=== PATIENT | female | born 1985 | race Caucasian/White ===

== ENCOUNTER 2017-10-07 12:57 | Emergency (ER) | payer OTHER, SELFPAY | END 2017-10-07 15:22 | disposition home or self-care (01) | PROVIDERS: Emergency Provider Nurse Practitioner; Family Provider Emergency Medicine; Visit Provider Nurse Practitioner | DX: J06.9 Acute upper respiratory infection, unspecified (principal); M62.838 Other muscle spasm; F17.210 Nicotine dependence, cigarettes, uncomplicated | CPT/HCPCS: 81003; 81025; 96372; 99202 ==

== ENCOUNTER 2017-11-30 16:30 | Outpatient (RCR) | payer MEDICAID, SELFPAY ==
--- NOTE | 2017-11-21 11:54 | HMH.PTOPEV ---
Rehab Outpatient Evaluation Rehab OP Evaluation Start: 11/21/17 11:40 Freq: Status: Active Protocol: Document 11/21/17 11:40 GA (Rec: 11/21/17 11:54 GA [id number]) Electronically Signed By David Lamb, PT 11/21/17 11:40 Outpatient Therapy Subjective History Subjective History Pt reports h/o chronic LBP beginning ~2-3 yrs ago, with exacerbation of s/s ~1 month previous. Pt reports R sided LBP, localized, w/o radicular s/s currently. Pt reports recent NSAID meds have improved pain level. Chief Complaint Pain Spasms Stiff Symptom Type Ache Dull Burning Symptoms Relieved By Heat OTC Meds Prescription Meds Symptoms Aggravated By Standing Physical Activity Walking Prior Functional Limitations None Current Functional Limitations Housework Standing Walking Symptom Description Constant but Variable Level of pain today (0-10) 2 Pain scale - at its best (0-10) 1 Pain scale - at its worst (0-10) 5 Lumbopelvic Eval Posture Thoracic Spine Posture Standing Position Neutral Lumbar Spine Posture Standing Position Neutral Assistive device Assistive Devices None / NA Gait Observation General Gait Pattern Observation No Deviations/Normal Palapation tenderness left paraspinal tenderness Yes: 1/4 Lumbar/Sacral Palpation Findings Tenderness right lumbar spinal tenderness Yes: 3/4 paraspinal tenderness Yes: 3/4 buttock tenderness Yes: 3/4 Lumbar/Sacral Palpation Findings Tenderness Muscle Guarding Accessory Movement L3 right L4 right L5 right Range of Motion Lumbar Spine Active Flexion Range of 0-100 Motion (degrees) Lumbar Spine Active Extension Range of 0-40 Motion (degrees) Left Lumbar Spine Lateral Flexion Active 0-40 Range of Motion (degrees) Right Lumbar Spine Lateral Flexion 0-40 Active Range of Motion (degrees) Lumbar Spine ROM Limitations Pain Manual Muscle Test Bilateral Knee Extension Strength Grade 5 Normal Knee Flexion Strength Grade 5 Normal Hip Flexion Strength Grade 5 Normal
== END 2017-11-30 16:35 | disposition home or self-care (01) ==
LOC: PT 16:30
PROVIDERS: Family Provider Emergency Medicine; PCP Emergency Medicine; Visit Provider Internal Medicine Adolescent Medicine
DX: M54.5 Low back pain (principal)

== ENCOUNTER 2018-01-14 15:24 | Emergency (ER) | payer MEDICAID, SELFPAY ==
[2018-01-14 15:39] VITALS: BP 140/90; PULSE 85; RESP 20; TEMP 36.6; O2SAT 98; BMI 82.0
--- NOTE | 2018-01-14 15:45 | HMH.EDUTC ---
[facility] [place] Disposition Clinical Impression: Ankle sprain Qualifiers: Encounter type: initial encounter Involved ligament of ankle: unspecified ligament Laterality: right Qualified Code(s): S93.401A - Sprain of unspecified ligament of right ankle, initial encounter Disposition: Home, Self-Care Condition on Discharge: Good Instructions: How To Perform RICE (Rest, Ice, Compress, Elevate), DI for Ankle Sprain, Ankle Sprain Additional Instructions: Follow up with Dr Leyva as advised *weight bearing as tolerated *RICE, Rest the extremity, Ice 15-20 minutes 3-4 times daily, Compress- wear the pierre wrap as discussed as much as possible to help reduce swelling and pain, Elevate the extremity when at rest *Pierre wrap is for support and help control swelling, use it except in the shower. Be sure that is not to tight but not to loose either *Elevate when resting *Ibuprofen 600-800mg every 6-8 hours as needed for pain an inflammation. If need something more can take Tylenol in between doses of Ibuprofen to help Immediately follow up for new or worsening of symptoms, or no noticeable improvement over the next 3-5 days Follow up with family doctor in 24-48 hours if no improvement or worsening of symptoms Prescriptions: Ibuprofen [Ibuprofen 600mg Tab] 600 mg PO Q4H PRN #20 tab PRN Reason: Moderate Pain Referrals: Jennifer Leyva DPM [Physician] - Time of Disposition: 16:36 Medical Decision Making - Medical Records Medical records reviewed: Yes: I reviewed the patient's medical records. - [place] Inquiry Pt receiving controlled substance: No [place] was queried for this patient: No Vital Signs: 01/14/18 15:39 Temperature 97.9 F Temperature Source Temporal Artery Scan Pulse Rate [Right Brachial] 85 Respiratory Rate 20 Blood Pressure [Right Arm] 140/90 Blood Pressure Mean [Right Arm] 106 Blood Pressure Source [Right Arm] Automatic Cuff Blood Pressure Position [Right Arm] Sitting 02 Sat by Pulse Oximetry 98 Oxygen Delivery Method Room Air - Radiology Data #1 Image(s): Ankle Image Reviewed: Yes I have reviewed radiologist's interpretation Preliminary Findings: No Fracture Seen [facility] [place] HPI - General Stated complaint: pain in right ankle-no injury Time Seen by Provider: 01/14/18 15:45 Mode of Arrival: Family Vehicle Source of Information: Patient Limitations: No Limitations Description of Symptoms (Recalled from Triage Doc. by RN): C/O RIGHT ANKLE PAIN X 2 DAYS WITH NO INJURIES HEENT Symptoms (Recalled from RN notes): No Resp Symptoms (Recalled from RN notes): No Skin Symptoms (Recalled from RN notes): No MS Symptoms (Recalled from RN notes): Yes Functional Status (Recalled from RN notes): N/A - History of Present Illness Provider Complaint: Patient state that she works in a [employer] and 2 days ago the resturant was really busy and she was on her feet walking for 14 hours State that she came home laid down and when she woke up she was having some pain in her right ankle area States that she has pain when she bears weight on it State that she has checked it and did not see any swelling or bruising state that it is just sore State that she bought an ankle brace to see if that would help but she was still having pain so she came in - Related Data Previous Rx's Medication Instructions Recorded Ibuprofen [Ibuprofen 600mg Tab] 600 mg PO Q4H PRN #20 tab 01/14/18 Allergies Allergy/AdvReac Type Severity Reaction Status Date / Time hydrocodone [HYDROCODONE] Allergy Intermediate ITCHING Verified 01/14/18 15:43 TOMATOES (FOOD) Allergy Severe I-RASH Uncoded 09/26/17 15:14 - Worker's Comp Is this a Worker's Comp case?: No [facility] History I have reviewed the patient's past medical history: Yes - Social History Smoking Status: Current every day smoker Tobacco Type: cigarettes Alcohol Intake: never - Psychiatric History Expresses thoughts of harming self/others: None Suicide Plan Description: No Plan ROS Obtained: Yes
--- NOTE | 2018-01-14 15:47 | XR_ITS ---
XR ankle RT min 3V Ordering Physician: Patient Age: 32 years: Female HISTORY: ITS.REASON: PAIN TECHNIQUE: 3 views right ankle COMPARISON : FINDINGS No fracture nor dislocation. The joint spaces well-maintained. Dome of talus intact. Bones well mineralized. Minimal spurring at insertion of Achilles tendon. IMPRESSION: Right ankle intact with no fracture nor dislocation.
[2018-01-14 16:37] VITALS: BP 138/86; PULSE 82; RESP 20; TEMP 36.6; O2SAT 98
== END 2018-01-14 16:47 | disposition home or self-care (01) ==
LOC: UTC 16:47
PROVIDERS: Emergency Provider Emergency Medicine; Family Provider Emergency Medicine; PCP Emergency Medicine
DX: S93.401A Sprain of unspecified ligament of right ankle, initial encounter (principal); X50.1XXA Overexertion from prolonged static or awkward postures, initial encounter; F17.210 Nicotine dependence, cigarettes, uncomplicated
CPT/HCPCS: 73610; 99203

== ENCOUNTER 2020-08-30 15:40 | Emergency (ER) | payer MEDICAID, SELFPAY ==
[2020-08-30 16:00] VITALS: BP 149/67; PULSE 72; RESP 20; TEMP 36.7; O2SAT 96; BMI 44.2
[2020-08-30 16:05] VITALS: BMI 44.2
--- NOTE | 2020-08-30 16:06 | XR_ITS ---
PROCEDURE: XR ELBOW LT MIN 3V Referring Doctor: Timbo Barrett Patient Age:35Y CLINICAL INDICATION: PAIN no known injury Left elbow pain for 2 weeks COMPARISON: No exams were available for comparison FINDINGS: Left elbow 3 view AP lateral and oblique Left elbow intact with no fracture or dislocation. No joint effusion evident. Radial head intact . No lytic or blastic change. There is normal mineralization. The joint spaces are well-preserved. No significant degenerative/arthritic changes. No erosive changes evident. . Soft tissues unremarkable IMPRESSION: No acute findings. Left elbow intact with no fracture nor joint effusion evident Dictated by: Holland Lyon MD 08/30/2020 17:02 Holland Lyon MD in OV 08/30/2020 17:02
--- NOTE | 2020-08-30 17:00 | HMH.EDUTC ---
[facility] [place] Disposition Clinical Impression: Lateral epicondylitis of elbow Qualifiers: Laterality: left Qualified Code(s): M77.12 - Lateral epicondylitis, left elbow Disposition: Home, Self-Care Condition on Discharge: Good Instructions: Lateral Epicondylitis, DI for Lateral Epicondylitis (Tennis Elbow) Additional Instructions: Rest the extremity, Wear the jose wrap for compression, Elevate the extremity as tolerated while you are resting. Take ibuprofen for pain. I sent in a prescription to your pharmacy. Avoid any repetitive motions with the elbow. Rest it as much as you can for the next week or so. Follow up with Dr. Kinsey (orthopedics). I put in a referral but you need to call his office and schedule an appointment. Follow up with your regular doctor. GO TO THE ER FOR ANY WORSENING SYMPTOMS Prescriptions: Ibuprofen [Ibuprofen 600mg Tablet] 600 mg PO Q6HP PRN #30 tab PRN Reason: Mild Pain Transmission Status: Received by [facility] Referrals: PCP,No [Primary Care Provider] - Ace Kinsey MD [Staff Physician] - Forms: Work/School Release Time of Disposition: 17:03 Medical Decision Making - Medical Records Medical records reviewed: No: I reviewed the patient's medical records. - [place] Inquiry Pt receiving controlled substance: No Vital Signs: 08/30/20 16:00 08/30/20 17:05 Temperature 98.0 F 98.0 F Temperature Source Oral Pulse Rate 72 Pulse Rate [Right Brachial] 72 Respiratory Rate 20 20 Blood Pressure 149/67 H Blood Pressure [Right Arm] 149/67 H Blood Pressure Mean [Right Arm] 94 Blood Pressure Source [Right Arm] Automatic Cuff Blood Pressure Position [Right Arm] Sitting 02 Sat by Pulse Oximetry 96 Oxygen Delivery Method Room Air [facility] [place] HPI - General Stated complaint: Pain in l elbow Time Seen by Provider: 08/30/20 17:00 Mode of Arrival: Ambulatory Source of Information: Patient Limitations: No Limitations Description of Symptoms (Recalled from Triage Doc. by RN): PATIENT C/O LEFT ELBOW PAIN WITH EXTENSION AND LIFTING X 2 WEEKS HEENT Symptoms (Recalled from RN notes): No Resp Symptoms (Recalled from RN notes): No Skin Symptoms (Recalled from RN notes): No MS Symptoms (Recalled from RN notes): No Functional Status (Recalled from RN notes): WNL - History of Present Illness Provider Complaint: She denies any injury. She states the pain is worse when she his lifting something or straightening her elbow. - Related Data Previous Rx's Medication Instructions Recorded Ibuprofen [Ibuprofen 600mg Tab] 600 mg PO Q4H PRN #20 tab 01/14/18 Ibuprofen [Ibuprofen 600mg 600 mg PO Q6HP PRN #30 tab 08/30/20 Tablet] Allergies Allergy/AdvReac Type Severity Reaction Status Date / Time hydrocodone [HYDROCODONE] Allergy Intermediate ITCHING Verified 01/16/18 13:20 TOMATOES (FOOD) Allergy Severe I-RASH Uncoded 01/16/18 13:20 - Worker's Comp Is this a Worker's Comp case?: No [facility] History - Hepatitis A Screen Drug use history?: No High risk sexual behaviors?: No History of sexually transmitted infection?: No Currently employed?: No Childcare worker?: No Do you have indoor plumbing?: Yes Do you have electricity?: Yes Attestation statement:: This patient has been screened for Hepatitis A risk factors. I have reviewed the patient's past medical history: Yes Medical History: Denies:: Asthma, Cancer, Chronic Obstructive Pulmonary Disease (COPD), Diabetes Mellitus Type 1, Diabetes Mellitus Type 2, Hyperlipidemia, Hypertension Other Surgeries: Yes: , Other (gallbladder, left foot) - Social History Smoking Status: Current every day smoker Tobacco Type: cigarettes # Packs/Day (cigarettes): 1 Alcohol Intake: never Alcohol Intake Frequency:: other Occupational Status: other Family Hx:: Diabetes ROS Obtained: Yes All systems reviewed & no additional complaints - Constitutional Constitutional: Denies chills, Denies fever(s)
[2020-08-30 17:05] VITALS: BP 149/67; PULSE 72; RESP 20; TEMP 36.7; O2SAT 96
== END 2020-08-30 17:13 | disposition home or self-care (01) ==
PROVIDERS: Emergency Provider Nurse Practitioner Family
DX: M77.12 Lateral epicondylitis, left elbow (principal); F17.210 Nicotine dependence, cigarettes, uncomplicated
CPT/HCPCS: 73080; 99201

== ENCOUNTER 2020-10-10 11:01 | Emergency (ER) | payer MEDICAID, SELFPAY ==
[2020-10-10 12:35] VITALS: BP 114/67; PULSE 59; RESP 14; TEMP 36.3; O2SAT 99; BMI 35.4
--- NOTE | 2020-10-10 12:53 | HMH.EDUTC ---
[facility] [place] Disposition Clinical Impression: Exposure to COVID-19 virus Disposition: Home, Self-Care Condition on Discharge: Good Instructions: Preventing the Spread of Coronavirus Discharge Instructions Additional Instructions: Drink plenty of fluids. Take tylenol for pain or fever. Follow up with your regular doctor. GO TO THE ER FOR ANY WORSENING SYMPTOMS Referrals: PCP,No [Primary Care Provider] - Time of Disposition: 12:54 Medical Decision Making - Medical Records Medical records reviewed: No: I reviewed the patient's medical records. - [place] Inquiry Pt receiving controlled substance: No Vital Signs: 10/10/20 12:35 10/10/20 13:05 Temperature 97.3 F L 97.3 F L Temperature Source Oral Pulse Rate 59 L Pulse Rate [Right Brachial] 59 L Respiratory Rate 14 14 Blood Pressure 114/67 Blood Pressure [Right Arm] 114/67 Blood Pressure Mean [Right Arm] 82 Blood Pressure Source [Right Arm] Automatic Cuff Blood Pressure Position [Right Arm] Sitting 02 Sat by Pulse Oximetry 99 Oxygen Delivery Method Room Air Orders (Tests/Meds): ORDERS Category Date Time Status Covid-19 Nasal PCR ([facility]) Routine Lab 10/10/20 12:40 Received [facility] [place] HPI - General Stated complaint: covid exposure and symptoms Time Seen by Provider: 10/10/20 12:53 - History of Present Illness Provider Complaint: She states that she was exposed to covid last week. - Related Data Previous Rx's Medication Instructions Recorded Ibuprofen [Ibuprofen 600mg Tab] 600 mg PO Q4H PRN #20 tab 01/14/18 Ibuprofen [Ibuprofen 600mg 600 mg PO Q6HP PRN #30 tab 08/30/20 Tablet] Allergies Allergy/AdvReac Type Severity Reaction Status Date / Time hydrocodone [HYDROCODONE] Allergy Intermediate ITCHING Verified 01/16/18 13:20 TOMATOES (FOOD) Allergy Severe I-RASH Uncoded 01/16/18 13:20 [facility] History - Hepatitis A Screen Attestation statement:: This patient has been screened for Hepatitis A risk factors. I have reviewed the patient's past medical history: Yes Medical History: Denies:: Asthma, Cancer, Chronic Obstructive Pulmonary Disease (COPD), Diabetes Mellitus Type 1, Diabetes Mellitus Type 2, Hyperlipidemia, Hypertension Other Surgeries: Yes: , Other (gallbladder, left foot) - Social History Smoking Status: Current every day smoker Tobacco Type: cigarettes # Packs/Day (cigarettes): 1 Alcohol Intake: never Alcohol Intake Frequency:: other Occupational Status: other Family Hx:: Diabetes ROS Obtained: Yes All systems reviewed & no additional complaints - Constitutional Constitutional: Reports anorexia - Eyes Eyes: Reports system reviewed and no additional complaints, except as docu - ENT Ears, Nose, Mouth, and Throat: Reports system reviewed and no additional complaints, except as docu - Cardiovascular Cardiovascular: Reports system reviewed and no additional complaints, except as docu - Respiratory Respiratory: Yes system reviewed and no additional complaints, except as docu - Gastrointestinal Gastrointestingal: Reports: system reviewed and no additional complaints, except as docu Physical Exam - General General appearance: alert, in no apparent distress - Head Head exam: atraumatic, normocephalic, normal inspection - Eye Eye exam: Present: normal appearance, PERRL, EOMI - ENT ENT exam: Present: normal exam, normal oropharynx, mucous membranes moist, TM's normal bilaterally, normal external ear exam - Neck Neck exam: Present: normal inspection, full ROM, trachea midline. Absent: meningismus, lymphadenopathy - Chest Chest inspection: Present: normal inspection, symmetric chest wall rise. Absent: tenderness - Respiratory Respiratory exam: Present: normal lung sounds bilaterally. Absent: respiratory distress - Cardiovascular Cardiovascular exam: Present: regular rate, normal rhythm. Absent: JVD - Abdominal Exam Abdominal exam: Present: soft, normal bowel so
[2020-10-10 13:05] VITALS: BP 114/67; PULSE 59; RESP 14; TEMP 36.3; O2SAT 99
--- NOTE | 2020-10-10 18:55 | PC.NURSE ---
patient notified of positive covid results
== END 2020-10-10 13:10 | disposition home or self-care (01) ==
PROVIDERS: Emergency Provider Nurse Practitioner Family
DX: U07.1 COVID-19 (principal); F17.210 Nicotine dependence, cigarettes, uncomplicated; Z88.5 Allergy status to narcotic agent
CPT/HCPCS: 99202; G0463; U0003

== ENCOUNTER 2022-03-19 22:19 | Emergency (ER) | payer OTHER, SELFPAY ==
[2022-03-19 22:21] VITALS: BP 147/104; PULSE 85; RESP 16; TEMP 37.3; O2SAT 95; BMI 39.8
--- NOTE | 2022-03-19 22:59 | HMH.EDGENADL ---
ED Disposition Clinical Impression: Acute vomiting, Dehydration, Viral upper respiratory illness Disposition: Home, Self-Care Condition on Discharge: Good Instructions: Common Cold Additional Instructions: Increase oral hydration and recommend Tylenol ibuprofen for fevers and body aches. Follow-up with your primary care and return to the ER for any new or worsening symptoms. Prescriptions: Ondansetron [Zofran 4mg ODT] 4 mg PO TIDP PRN 3 Days #9 tab PRN Reason: Nausea Transmission Status: Pending to [facility] Referrals: Pedro Lizarraga MD [Primary Care Provider] - - Critical Care Critical Care Time: No Attestation: On 03/19/22, the high probability of a clinically significant, sudden or life threatening deterioration of the following system(s) required my full and direct attention, intervention and personal management. The time I documented below is in addition to time spent performing reported procedures but includes the following listed in this critical care notation. Medical Decision Making - Medical Records Medical records reviewed: Yes: I reviewed the patient's medical records. - [place] Inquiry Pt receiving controlled substance: No Vital Signs: 03/19/22 22:21 03/19/22 23:42 Temperature 99.2 F Temperature Source Oral Pulse Rate 68 Pulse Rate [Right] 85 Respiratory Rate 16 Blood Pressure [Right Arm] 147/104 H Blood Pressure Mean [Right Arm] 118 02 Sat by Pulse Oximetry 95 - Lab Data Lab Results 03/19/22 22:35: WBC 11.3 H, RBC 5.26, Hgb 16.7 H, Hct 47.8 H, MCV 90.8, MCH 31.8 H, MCHC 35.0, RDW 13.9, Plt Count 301, MPV 8.6, Neut % (Auto) 61.2, Lymph % (Auto) 29.3, Lumpkin % (Auto) 6.0, Eos % (Auto) 1.4, Baso % (Auto) 2.1 H, Neut # (Auto) 6.9, Lymph # (Auto) 3.3, Lumpkin # (Auto) 0.7, Eos # (Auto) 0.2, Baso # (Auto) 0.2 03/19/22 22:35: Sodium 138, Potassium 3.1 L, Chloride 100, Carbon Dioxide 27, Anion Gap 14.1, BUN 7, Creatinine 0.70, Estimated Creat Clear 177, Estimated GFR 94, Est GFR ( Amer) 114, Glucose 103 H, Calcium 9.6, Total Bilirubin 0.5, AST 46 H, ALT 63, Alkaline Phosphatase 83, Total Protein 8.5 H, Albumin 4.7, Globulin 3.8 H, Albumin/Globulin Ratio 1.2, Lipase 36 03/19/22 23:05: SARS-CoV-2 (PCR) Not detected, Influenza A Untype (PCR) Not detected, Influenza Type B (PCR) Not detected 03/19/22 23:30: Urine Color Yellow, Urine Appearance Clear, Urine pH 6.5, Ur Specific [place] <= 1.005, Urine Protein Negative, Urine Glucose (UA) Negative, Urine Ketones Negative, Urine Blood Negative, Urine Nitrate Negative, Urine Bilirubin Negative, Urine Urobilinogen 0.2, Ur Leukocyte Esterase Negative, Urine WBC Occasional, Ur Squamous Epith Cells 3-5, Urine Bacteria Trace 03/19/22 23:30: Urine HCG, Qual Negative Result diagrams: 03/19/22 22:35 03/19/22 22:35 Orders (Tests/Meds): ED MEDICATIONS Generic Name Dose Route Start Last Admin Trade Name Freq PRN Reason Stop Dose Admin Sodium Chloride 1,000 mls @ 999 mls/hr 03/19/22 23:30 03/19/22 23:51 Sod Chlor 0.9% 1000ml Bag IV 03/20/22 00:30 999 mls/hr .Q1H1M ARACELI Administration Discontinued Medications Generic Name Dose Route Start Last Admin Trade Name Freq PRN Reason Stop Dose Admin Albuterol/Ipratropium 3 ml 03/19/22 23:23 03/19/22 23:42 Ipratropium/Albuterol 3 Ml Neb IH 03/19/22 23:24 3 ml ONCE ONE Administration Dexamethasone 8 mg 03/20/22 01:18 03/20/22 01:23 Dexamethasone 4mg Tablet PO 03/20/22 01:19 8 mg ONCE ONE Administration Ondansetron HCl 4 mg 03/19/22 23:23 03/19/22 23:51 Ondansetron 4mg/2ml Vial IV 03/19/22 23:24 4 mg ONCE ONE Administration Potassium Chloride 40 meq 03/20/22 01:31 03/20/22 01:38 Potassium Chloride 20meq Tab PO 03/20/22 01:32 40 meq ONCE ONE Administration Medical Decision Narrative: 36-year-old female presents with persistent nausea vomiting with viral respiratory symptoms as well. Chest x-ray demonstrates no focal
[2022-03-19 23:21] LABS: Coronavirus 19, PCR Not Detected (NotDetected); Influenza A, PCR Not Detected (NotDetected); Influenza B, PCR Not Detected (NotDetected)
--- NOTE | 2022-03-19 23:23 | XR_ITS ---
PROCEDURE INFORMATION: Exam: XR Chest Exam date and time: 03/19/2022 11:33 PM Age: 36 years old Clinical indication: Dyspnea; Patient HX: Smoker TECHNIQUE: Imaging protocol: XR of the chest. Views: 1 view. COMPARISON: CR CXR CHEST(2 VIEWS-NOT PORTABLE) 07/05/2015 10:41 PM FINDINGS: Lungs: Stable probable granuloma in the left upper lung field. Pleural spaces: No pleural effusion. No pneumothorax. Heart/Mediastinum: Unremarkable cardiomediastinal silhouette. Bones/joints: No acute osseous findings. IMPRESSION: No focal consolidation.
[2022-03-19 23:35] LABS: Microscopic, Urine URINE MICROSCOPIC (MICROSCOPIC)
[2022-03-19 23:37] LABS: Appearance,Urine CLEAR (Clear); Bilirubin,Urine Negative (Negative); Blood, Urine Negative (Negative); Color,Urine YELLOW (Yellow); Glucose,Urine (UA) Negative (Negative); Ketones,Urine Negative (Negative); Leukocyte Esterase,Urine Negative (Negative); Nitrate,Urine Negative (Negative); PH,Urine 6.5 (5.0-8.5); Protein,Urine Negative (Negative); Specific Gravity, Urine <= 1.005 (1.005-1.030); Urobilinogen,Urine 0.2 EU/dl (0.2)
[2022-03-19 23:42] VITALS: PULSE 68
[2022-03-19 23:47] LABS: Urine Pregnancy, HCG Qual. Negative (Negative)
[2022-03-19 23:49] LABS: Basophils # 0.2 K/mm3 (0-0.2); Basophils % 2.1 % (0.1-2.0); Eosinophils # 0.2 K/mm3 (0.0-0.4); Eosinophils % 1.4 % (0.1-12.0); Hematocrit 47.8 % (37.0-47.0); Hemoglobin 16.7 g/dL (12.2-16.2); Lymphocytes # 3.3 K/mm3 (0.7-4.5); Lymphocytes % 29.3 % (10-50); Mean Corpuscular Hemoglobin 31.8 pg (27.0-31.2); Mean Corpuscular Volume 90.8 fl (81-99); Mean Platelet Volume 8.6 fl (7.4-10.4); Monocytes # 0.7 K/mm3 (0.1-1.0); Neutrophils # 6.9 K/mm3 (1.8-7.8); Neutrophils % 61.2 % (37.0-80.0); Platelet Count 301 K/mm3 (142-424); Red Blood Count 5.26 M/mm3 (4.20-5.40); Red Cell Distribution Width 13.9 % (11.5-17.5); White Blood Count 11.3 K/mm3 (4.8-10.8)
[2022-03-19 23:50] LABS: Bacteria,Urine Trace /lpf; WBC,Urine Occasional #/hpf (0-3)
[2022-03-19 23:53] LABS: Alanine Aminotransferase 63 U/L (12-78); Albumin Level 4.7 g/dl (3.5-5.0); Albumin/Globulin Ratio 1.2 (1.1-1.8); Alkaline Phosphatase 83 U/L (38-126); Anion Gap 14.1 mEq/L (5-15); Aspartate Amino Transferase 46 U/L (14-36); Bilirubin,Total 0.5 mg/dl (0.2-1.3); Blood Urea Nitrogen 7 mg/dl (7-17); Calcium 9.6 mg/dl (8.4-10.2); Carbon Dioxide 27 mmol/L (22.0-30.0); Chloride 100 mmol/L (98-107); Creatinine Clearance Estimated 177 mL/min (50-200); Estimated Glomerular Filt Rate 94 ml/min (>60); GFR (African American) 114 ML/MIN (>60); Globulin 3.8 g/dL (1.3-3.2); Glucose 103 mg/dl (74-100); Lipase 36 U/L (23-300); Potassium 3.1 mmoL/L (3.5-5.1); Sodium 138 mmol/L (136-145); Total Protein,Serum 8.5 g/dl (6.3-8.2)
[2022-03-20 01:51] VITALS: BP 146/78; PULSE 81; RESP 16; TEMP 36.9; O2SAT 95
== END 2022-03-20 01:53 | disposition home or self-care (01) ==
PROVIDERS: Emergency Provider Student in an Organized Health Care Education/Training Program; PCP Internal Medicine Adolescent Medicine
DX: J06.9 Acute upper respiratory infection, unspecified (principal); E86.0 Dehydration; R11.2 Nausea with vomiting, unspecified; Z20.822 Contact with and (suspected) exposure to COVID-19; I10 Essential (primary) hypertension; E78.5 Hyperlipidemia, unspecified; E10.9 Type 1 diabetes mellitus without complications; E11.9 Type 2 diabetes mellitus without complications; J44.9 Chronic obstructive pulmonary disease, unspecified; Z79.1 Long term (current) use of non-steroidal anti-inflammatories (NSAID); Z88.5 Allergy status to narcotic agent; Z88.6 Allergy status to analgesic agent; Z91.018 Allergy to other foods
CPT/HCPCS: 71045; 80053; 81001; 81025; 83690; 85025; 94640; 96361; 96374; 99285; C9803; J2405; U0003; U0005

== ENCOUNTER 2022-05-07 14:30 | Emergency (ER) | payer OTHER, SELFPAY ==
--- NOTE | 2022-05-07 14:49 | HMH.EDUTC ---
[facility] [place] Disposition Clinical Impression: Exposure to COVID-19 virus, Viral syndrome Disposition: Home, Self-Care Condition on Discharge: Good Instructions: DI for COVID-19 (Suspected or Confirmed ), Preventing the Spread of Coronavirus Discharge Instructions Additional Instructions: Drink plenty of fluids. Take tylenol or ibuprofen for pain or fever. Take the medications as directed. Follow up with your regular doctor. GO TO THE ER FOR ANY WORSENING SYMPTOMS Quarantine until you know the results of your covid-19 test. Notify your school or workplace of your results and follow their instructions regarding return to work/school. Prescriptions: Ondansetron [Zofran 4mg ODT] 4 mg PO Q8HP PRN #12 tab PRN Reason: Nausea Transmission Status: Received by [id number] Benzonatate [Benzonatate 100mg cap] 100 mg PO TIDP PRN #30 cap PRN Reason: Cough Transmission Status: [facility] Referrals: Provider,Referral, [Primary Care Provider] - Forms: Work/School Release Time of Disposition: 15:18 Medical Decision Making - Medical Records Medical records reviewed: No: I reviewed the patient's medical records. - [place] Inquiry Pt receiving controlled substance: No Vital Signs: 05/07/22 14:56 05/07/22 15:22 Temperature 99.0 F 99.0 F Temperature Source Oral Pulse Rate 83 Pulse Rate [Left] 83 Respiratory Rate 18 18 Blood Pressure 128/81 Blood Pressure [Right Arm] 128/81 Blood Pressure Mean [Right Arm] 96 02 Sat by Pulse Oximetry 95 - Lab Data Lab results reviewed: Yes: I reviewed the patient's lab results. [facility] [place] HPI - General Stated complaint: covid exposure, left ear pain, congestion Time Seen by Provider: 05/07/22 14:49 - History of Present Illness Provider Complaint: She states that she has sinus congestion, sore throat and feeling bad for the past 2 days. - Related Data Previous Rx's Medication Instructions Recorded Ibuprofen [Ibuprofen 600mg Tab] 600 mg PO Q4H PRN #20 tab 01/14/18 Ibuprofen [Ibuprofen 600mg 600 mg PO Q6HP PRN #30 tab 08/30/20 Tablet] Ondansetron [Zofran 4mg ODT] 4 mg PO TIDP PRN 3 Days #9 tab 03/20/22 Benzonatate [Benzonatate 100mg 100 mg PO TIDP PRN #30 cap 05/07/22 cap] Ondansetron [Zofran 4mg ODT] 4 mg PO Q8HP PRN #12 tab 05/07/22 Allergies Allergy/AdvReac Type Severity Reaction Status Date / Time hydrocodone [HYDROCODONE] Allergy Intermediate ITCHING Verified 05/07/22 15:00 TOMATOES (FOOD) Allergy Severe I-RASH Uncoded 01/16/18 13:20 [facility] History - Hepatitis A Screen Attestation statement:: This patient has been screened for Hepatitis A risk factors. I have reviewed the patient's past medical history: Yes Medical History: Denies:: Asthma, Cancer, Chronic Obstructive Pulmonary Disease (COPD), Diabetes Mellitus Type 1, Diabetes Mellitus Type 2, Hyperlipidemia, Hypertension Other Surgeries: Yes: , Other (gallbladder, left foot) - Social History Smoking Status: Current every day smoker Tobacco Type: cigarettes # Packs/Day (cigarettes): 1 Alcohol Intake: never Alcohol Intake Frequency:: other Occupational Status: other Family Hx:: Diabetes ROS Obtained: Yes All systems reviewed & no additional complaints - Constitutional Constitutional: Reports as per HPI - Eyes Eyes: Denies eye discharge - ENT Ears, Nose, Mouth, and Throat: Reports as per HPI - Cardiovascular Cardiovascular: Denies chest pain - Respiratory Respiratory: Reports chest congestion, Reports cough Physical Exam - General General appearance: alert, in no apparent distress - Head Head exam: atraumatic, normocephalic, normal inspection - Eye Eye exam: Present: normal appearance, PERRL, EOMI - ENT ENT exam: Present: mucous membranes moist, normal external ear exam - Expanded ENT Exam TM/Canal exam: Bilateral TM: erythema, bulging, effusion Nose exam: Absent: sinus tenderness N
[2022-05-07 14:56] VITALS: BP 128/81; PULSE 83; RESP 18; TEMP 37.2; O2SAT 95; BMI 35.4
[2022-05-07 15:22] VITALS: BP 128/81; PULSE 83; RESP 18; TEMP 37.2
== END 2022-05-07 15:27 | disposition home or self-care (01) ==
PROVIDERS: Emergency Provider Nurse Practitioner Family
DX: U07.1 COVID-19
CPT/HCPCS: 99212; C9803; G0463; U0003; U0005

== ENCOUNTER 2023-06-15 14:16 | Emergency (ER) | payer OTHER, SELFPAY ==
[2023-06-15 14:17] VITALS: BP 145/93; PULSE 77; RESP 16; TEMP 36.8; O2SAT 96; BMI 35.4
[2023-06-15 15:00] VITALS: BP 152/88; PULSE 72; RESP 14; O2SAT 96
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
[2023-06-15 15:26] LABS: Urine Pregnancy, HCG Qual. Negative (Negative)
--- NOTE | 2023-06-15 15:38 | ECG_ITS ---
APPROVED REPORT Exam: Resting ECG HR:57 bpm ECG Measurements Heart Rate 57 AXES AL 151 P 71 QRSd 92 QRS 77 QT 419 T 55 QTc 413 Conclusion SINUS BRADYCARDIA BORDERLINE ECG UNCONFIRMED REPORT Electronically signed by : Pedro Lizarraga MD 06/15/2023 19:55:59
[2023-06-15 16:37] VITALS: BP 140/80; PULSE 73; RESP 18; TEMP 36.6; O2SAT 99
== END 2023-06-15 16:38 | disposition home or self-care (01) ==
PROVIDERS: Emergency Provider Emergency Medicine; PCP Nurse Practitioner Pediatrics
DX: R51.9 Headache, unspecified (principal); M79.631 Pain in right forearm; V48.0XXA Car driver injured in noncollision transport accident in nontraffic accident, initial encounter; F17.210 Nicotine dependence, cigarettes, uncomplicated; R00.1 Bradycardia, unspecified
CPT/HCPCS: 71045; 73090; 81025; 93005; 99285

== ENCOUNTER 2024-10-01 07:01 | Emergency (ER) | payer OTHER, SELFPAY ==
[2024-10-01 07:11] VITALS: BP 180/91; PULSE 68; RESP 20; TEMP 36.8; O2SAT 99; BMI 35.4
[2024-10-01] MEDS: ONDANSETRON 4MG/2ML VIAL 4 MG IV (07:28)
[2024-10-01 07:34] VITALS: BP 148/114; PULSE 70; O2SAT 96
--- NOTE | 2024-10-01 07:39 | HMH.EDGENADL ---
Discharge Plan Disposition Patient Disposition: Home, Self-Care Prescriptions Prescriptions: New ondansetron 4 mg tablet,disintegrating 4 mg PO Q8H PRN (Reason: nausea and vomiting) 4 Days Qty: 12 0RF doxycycline hyclate 100 mg capsule 100 mg PO BID 7 Days Qty: 14 0RF No Action amoxicillin-pot clavulanate 875-125 mg tablet 1 tab PO BID 10 Days Qty: 20 0RF Referrals Follow up/Referrals: Pedro Lizarraga MD [Primary Care Provider] - See instructions Activity Restrictions/Add. Instructions Additional Instructions/Restrictions: At this time it was felt you are safe to be discharged home. If new or worsening symptoms please do not hesitate to return the emergency department. Please take your medications as prescribed. If you are not better by next week please follow-up with your family doctor for continued evaluation. Clinical Impressions Clinical Impression: Acute viral syndrome Print Language Print Language: [place] Citizen Discharge ED Provider: Mina Chang General Adult HPI General Chief complaint: Upper Respiratory Infection Stated complaint: vomiting, headache, runny nose, sweating Time Seen by Provider: 10/01/24 07:12 Mode of Arrival: Ambulatory Source of Information: Patient Limitations: No Limitations Description of Symptoms (Recalled from ER Triage Doc. by RN): pt c/o N/V/D, chills, burning up, and a slight cough. pt appears diaphorectic, she is afebrile at this time. pt denies SOA, chest pain, abd pain or urinary symptoms. pts only medical hx is asthma. History of Present Illness HPI narrative: Patient is a 39-year-old female with no pertinent past medical history who presents to the emergency department for evaluation of multiple complaints. Over the last couple of days she has had a mild holocranial headache without reported photophobia or phonophobia, diffuse muscle aches, nonbloody vomiting, runny nose. There is an associated scratchy sore throat. No significant cough. No abdominal pain or chest pain reported. Last menstrual period earlier this month. No other acute complaints at this time. Related Data Previous Rx's ?Medication ?Instructions ?Recorded amoxicillin 875 mg-potassium 1 tab PO BID 10 days #20 tabs 02/06/23 clavulanate 125 mg tablet doxycycline hyclate 100 mg capsule 100 mg PO BID pneumonia 7 days #14 10/01/24 caps ondansetron 4 mg disintegrating 4 mg PO Q8H PRN nausea and 10/01/24 tablet vomiting 4 days #12 tabs Allergies Allergy/AdvReac Type Severity Reaction Status Date / Time hydrocodone (HYDROCODONE) Allergy Intermediate ITCHING Verified 10/01/24 07:15 TOMATOES (FOOD) Allergy Severe I-RASH Uncoded 02/06/23 13:12 [facility] Disclaimer: The information contained in this section may have been updated after the patient was seen, as this information can be updated by other users. Social History Smoking Status: Current every day smoker tobacco type: cigarettes packs per day: 1 alcohol intake: never current occupational status: other Travel in the last 8 weeks: None Have you lived/traveled outside US in past 30 days?: No Contact w/someone who lives/traveled outside US past 30 days?: No Exposure to someone with infectious disease in past 14 days?: No Do you have a fever (greater than 100.4 F or 38 C)?: No Have you tested positive for COVID-19: No Exposed to someone with COVID-19 in past 14 days?: No Do you have a sore throat?: No Do you have a cough?: No Do you have any weakness?: No Do you have any diarrhea?: No Are you experiencing any unusual bleeding?: No Do you have any muscle aches/pain?: No Do you have any abdominal pain?: No Are you experiencing loss of taste or smell?: No Other Medical History Have you received the Flu Vaccine for this season: No Have you received the Pneumonia Vaccine: No ROS Obtained: Yes Systems reviewed as appropriate & no additional complaints except as documented Physical Exam General General appearance: alert and in no apparent distress Head Head exam: atraumatic and normocephalic Eye Eye exam: Present PERRL ENT ENT exam: Present mucous membranes moist and other (Mildly enlarged erythematous tonsils, exudate on the right tonsil, no asymmetric swelling uvula midline.) Neck Neck exam: Present normal inspection Chest Chest inspection: Present normal inspection and symmetric chest wall rise Respiratory Respiratory exam: Present normal lung sounds bilaterally; Absent respiratory distress, wheezes, stridor or accessory muscle use Cardiovascular Cardiovascular exam: Present regular rate and normal rhythm Abdominal Exam Abdominal exam: Present soft; Absent tenderness Extremities Exam Extremities exam: Present normal inspection Neurological Exam Neurological exam: Present alert, CN II-XII intact and normal gait; Absent motor sensory deficit Psychiatric Psychiatric exam: Present normal affect Skin Skin exam: Present warm and dry Medical Decision Making Medical Records Screening: Per USPSTF and CDC recommendations, given the prevalence of disease in our region, it is our hospital?s policy to screen for HIV and viral Hepatitis for all patients aged 18 and over and those with ongoing risk factors. [place] Inquiry Pt receiving controlled substance: No Vital Signs: 10/01/24 07:11 10/01/24 07:34 10/01/24 07:42 Temperature 98.2 F Temperature Source Oral Pulse Rate 70 55 L Pulse Rate [Right] 68 Respiratory Rate 20 Blood Pressure 148/114 H 148/88 H Blood Pressure [Right Arm] 180/91 H Blood Pressure Mean [Right Arm] 120 Blood Pressure Source [Right Arm] Automatic Cuff Blood Pressure Position [Right Arm] Sitting 02 Sat by Pulse Oximetry 99 96 95 Oxygen Delivery Method Room Air Room Air Room Air 10/01/24 08:00 Temperature Temperature Source Pulse Rate 65 Pulse Rate [Right] Respiratory Rate Blood Pressure 161/99 H Blood Pressure [Right Arm] Blood Pressure Mean [Right Arm] Blood Pressure Source [Right Arm] Blood Pressure Position [Right Arm] 02 Sat by Pulse Oximetry 98 Oxygen Delivery Method Room Air Lab Data Lab Results 10/01/24 07:08: Urine HCG, Qual Negative 10/01/24 07:17: SARS-CoV-2 (PCR) Not detected, Influenza A Untype (PCR) Detected A, Influenza Type B (PCR) Not detected 10/01/24 07:32: Group A Strep Rapid Negative 10/01/24 : POC RSV Rapid Negative Orders (Tests/Meds): ED MEDICATIONS Discontinued Medications Generic Name Dose Route Start Last Admin Trade Name Freq PRN Reason Stop Dose Admin Ondansetron HCl 4 mg 10/01/24 07:24 10/01/24 07:28 Ondansetron 4mg/2ml Vial IV 10/01/24 07:25 4 mg ONCE ONE Administration ORDERS Category Date Time Status CXR --portable [XR chest portable] Stat Exams 10/01/24 08:04 Ordered HIV (1&2) Antibody Rapid Stat Lab 10/01/24 07:17 Received Hep C Ab with Reflex to RNA Stat Lab 10/01/24 07:17 Received RSV Rapid Ab Screen Stat Lab 10/01/24 Completed Rapid PCR Covid and Flu A/B Stat Lab 10/01/24 07:17 Completed Rapid Strep Scrn Group A [Strep Scrn Group A (Rapid)] Lab 10/01/24 07:32 Completed Stat Urinalysis and Microscopic Stat Lab 10/01/24 07:08 Received Urine , HCG Qual. Stat Lab 10/01/24 07:08 Completed Strep Screen Confirmation Stat Micro 10/01/24 07:32 Received Medical Decision Narrative: In summary patient is a 39-year-old female past medical history described above who presents to the emergency department for evaluation of multiple complaints including body aches, nonspecific headache, vomiting, rhinorrhea. Patient is hemodynamically stable nontoxic-appearing upon arrival, afebrile. Differential includes nonspecific viral syndrome, strep pharyngitis, RSV, COVID, influenza, among others. Workup will be conducted with respiratory swab, strep swab, urine test and urinalysis. Initial inventions include Zofran and p.o. trial. Hematologic labs was considered however given history and physical exam with normal hemodynamics will be deferred at this time. Although patient complained of no significant cough after my initial evaluation she had significant cough on my observation so chest x-ray was ordered and is informally interpreted by me it appears there is a developing right lower lobe pneumonia as well as bilateral interstitial opacities. Upon repeat evaluation patient continued to have no respiratory distress was saturating the high 90s on room air. Swabs reviewed by me and are remarkable for influenza A. Atypical coverage for concomitant bacterial pneumonia will be conducted with doxycycline given appearance on x-ray and prevalence in the community. Patient is appropriate for outpatient management at this time and was given multiple return precautions. Critical Care Critical Care Time Critical Care Time: No
[2024-10-01 07:42] VITALS: BP 148/88; PULSE 55; O2SAT 95
[2024-10-01 07:57] LABS: Microscopic, Urine URINE MICROSCOPIC (MICROSCOPIC)
[2024-10-01 07:59] LABS: Coronavirus 19, PCR Not Detected (NotDetected); Influenza B, PCR Not Detected (NotDetected)
[2024-10-01 08:00] VITALS: BP 161/99; PULSE 65; O2SAT 98
--- NOTE | 2024-10-01 08:04 | XR_ITS ---
FINAL REPORT CLINICAL HISTORY: cough COMPARISON: 06/15/2023 FINDINGS: No acute pulmonary opacity is present. There is old calcified granulomatous disease. There is no evidence of effusion or pneumothorax. Mediastinum is unremarkable. Heart size is normal. IMPRESSION: No acute abnormality. Reviewed, Interpreted and Dictated by Rosalina Jones MD Transcribed by Noelle Ndiaye Authenticated and [facility]
[2024-10-01 08:25] LABS: Blood, Urine Negative (Negative); Color,Urine YELLOW (Yellow); Glucose,Urine (UA) Negative (Negative); Ketones,Urine 1+ (Negative); Leukocyte Esterase,Urine Negative (Negative); Nitrate,Urine Negative (Negative); PH,Urine 6.5 (5.0-8.5); Protein,Urine TRACE (Negative); Specific Gravity, Urine 1.025 (1.005-1.030)
[2024-10-01 08:26] LABS: Urine Pregnancy, HCG Qual. Negative (Negative)
[2024-10-01 08:29] LABS: Strep Scrn Group A (Rapid) Negative (Negative)
[2024-10-01 08:31] VITALS: BP 150/85; PULSE 67; O2SAT 96
[2024-10-01 08:36] LABS: RSV Rapid Ab Screen Negative (Negative)
[2024-10-01 08:38] LABS: Influenza A, PCR Detected (NotDetected)
[2024-10-01 08:51] LABS: Appearance,Urine Slightly Cloudy (Clear); Bilirubin,Urine 1+ (Negative)
[2024-10-01 08:58] VITALS: BP 150/85; PULSE 60; RESP 16; TEMP 36.8; O2SAT 97
[2024-10-01 11:14] LABS: HIV Combo NEGATIVE (Negative)
[2024-10-01 11:18] LABS: Amorphous Sediment,Urine 2+ /lpf; Bacteria,Urine Trace /lpf; WBC,Urine Occasional #/hpf (0-3)
[2024-10-02 03:49] LABS: HCV Ab Non Reactive (Non Reactive)
== END 2024-10-01 09:06 | disposition home or self-care (01) ==
PROVIDERS: Emergency Provider Emergency Medicine; PCP Internal Medicine Adolescent Medicine
DX: B34.9 Viral infection, unspecified (principal); J10.1 Influenza due to other identified influenza virus with other respiratory manifestations; R11.2 Nausea with vomiting, unspecified; R19.7 Diarrhea, unspecified; R50.9 Fever, unspecified; R05.9 Cough, unspecified; R51.9 Headache, unspecified; M79.10 Myalgia, unspecified site; Z72.0 Tobacco use
CPT/HCPCS: 71045; 81001; 81025; 86803; 87389; 87430; 87636; 87807; 96374; 99283; J2405

== ENCOUNTER 2024-12-17 09:51 | Emergency (ER) | payer SELFPAY ==
[2024-12-17 10:00] VITALS: BP 157/97; PULSE 75; O2SAT 95
[2024-12-17 10:13] VITALS: BP 157/73; PULSE 82; RESP 16; TEMP 36.5; O2SAT 96; BMI 35.4
--- NOTE | 2024-12-17 10:19 | XR_ITS ---
FINAL REPORT CLINICAL HISTORY: posterior pain and spasming FINDINGS: LEFT CALCANEUS 2 views were obtained. There is no acute fracture or dislocation. Visualized joint spaces are normally aligned. There is a moderate plantar spur. Meryl deformity is noted. Soft tissues are unremarkable. IMPRESSION: No acute bony abnormality. Reviewed, Interpreted and Dictated by Akhil Mcwilliams MD Transcribed by Val Moore Authenticated and . [facility]
[2024-12-17] MEDS: predniSONE 20MG TAB 40 MG PO (10:25)
[2024-12-17 10:44] VITALS: BP 152/90; PULSE 60; RESP 16; TEMP 36.5; O2SAT 100
--- NOTE | 2024-12-17 10:44 | HMH.EDGENADL ---
Discharge Plan Disposition Patient Disposition: Home, Self-Care Prescriptions Prescriptions: New prednisone 20 mg tablet 40 mg PO DAILY 5 Days Qty: 10 0RF Referrals Follow up/Referrals: Pedro Lizarraga MD [Primary Care Provider] - See instructions Jennifer Leyva DPM [Staff Physician] - See instructions Activity Restrictions/Add. Instructions Additional Instructions/Restrictions: Call your family doctor to establish care for this visit to the emergency department and schedule follow-up within 48 hours to ensure improvement. If you have any worsening of your condition or any other concerning signs or symptoms, return to the emergency department or your primary care doctor for further evaluation. Clinical Impressions Clinical Impression: Enthesitis, Bone spur of left foot Print Language Print Language: [place]ian Discharge ED Provider: Miguel Garcia General Adult HPI General Chief complaint: Extremity Problem,Nontraumatic Stated complaint: left heel painful w/walking swelling Time Seen by Provider: 12/17/24 10:05 Mode of Arrival: Ambulatory Source of Information: Patient Description of Symptoms (Recalled from ER Triage Doc. by RN): pt c/o L heal pain with an edematous knot. pt states the pain is pressure/dull and 4/10 when bearing wt. pt states she has had decreased sensation in her L foot. pt states this has been ongoing x1yr intermittantly. History of Present Illness HPI narrative: Please note that above description of symptoms, in this electronic medical record under categorization of recalled from ER triage doctor by RN are reflective of an initial nursing assessment, however, is not reflective of my full history and physical exam that was personally taken and clarified. Consequentially, this preceding description of symptoms, which may include the patient's categorized chief complaint in the EMR, do not reflect my personal clinical impression, and the ultimate description of history of present illness and patient stated complaints should be deferred to this section of the note. Unless stated otherwise or congruent with this section of the note, additional signs, symptoms, or incongruence should be interpreted as inaccurate with my clinical impression. Related Data Previous Rx's ?Medication ?Instructions ?Recorded prednisone 20 mg tablet 40 mg (2 x 20 mg) PO DAILY 5 days 12/17/24 #10 tabs Allergies Allergy/AdvReac Type Severity Reaction Status Date / Time hydrocodone (HYDROCODONE) Allergy Intermediate ITCHING Verified 12/17/24 10:22 [facility] Disclaimer: The information contained in this section may have been updated after the patient was seen, as this information can be updated by other users. Social History Smoking Status: Current every day smoker tobacco type: cigarettes packs per day: 1 alcohol intake: never current occupational status: other Travel in the last 8 weeks: None Have you lived/traveled outside US in past 30 days?: No Contact w/someone who lives/traveled outside US past 30 days?: No Exposure to someone with infectious disease in past 14 days?: No Do you have a fever (greater than 100.4 F or 38 C)?: No Have you tested positive for COVID-19: No Exposed to someone with COVID-19 in past 14 days?: No Do you have a sore throat?: No Do you have a cough?: No Do you have any weakness?: No Do you have any diarrhea?: No Are you experiencing any unusual bleeding?: No Do you have any muscle aches/pain?: No Do you have any abdominal pain?: No Are you experiencing loss of taste or smell?: No Other Medical History Have you received the Flu Vaccine for this season: No Have you received the Pneumonia Vaccine: No ROS Obtained: Yes All systems reviewed & no additional complaints except as documented Physical Exam General General appearance: alert Head Head exam: atraumatic and normocephalic Eye Eye exam: Present normal appearance, PERRL and EOMI Neck Neck exam: Present normal inspection, full ROM and trachea midline Respiratory Respiratory exam: Absent respiratory distress, wheezes, stridor, accessory muscle use or prolonged expiratory phase Cardiovascular Cardiovascular exam: Present other (Pulses equal symmetric in upper and lower extremities) Abdominal Exam Abdominal exam: Present soft; Absent distention, tenderness or pulsatile mass Extremities Exam Extremities exam: Present other (Tenderness posterior calcaneus left foot. No outward signs of injury or deformity); Absent edema Neurological Exam Neurological exam: Present alert, oriented X3 and CN II-XII intact; Absent motor sensory deficit Skin Skin exam: Present warm and dry; Absent diaphoresis or erythema Medical Decision Making Medical Records Medical records reviewed: Yes I reviewed the patient's medical records. Screening: Per USPSTF and CDC recommendations, given the prevalence of disease in our region, it is our hospital?s policy to screen for HIV and viral Hepatitis for all patients aged 18 and over and those with ongoing risk factors. [place] Inquiry Pt receiving controlled substance: No [place] was queried for this patient: No Vital Signs: 12/17/24 10:00 12/17/24 10:13 Temperature 97.7 F Temperature Source Oral Pulse Rate 75 Pulse Rate [Left] 82 Respiratory Rate 16 Blood Pressure 157/97 H Blood Pressure [Right Arm] 157/73 H Blood Pressure Mean [Right Arm] 101 Blood Pressure Source [Right Arm] Automatic Cuff Blood Pressure Position [Right Arm] Sitting 02 Sat by Pulse Oximetry 95 96 Oxygen Delivery Method Room Air Room Air Orders (Tests/Meds): ED MEDICATIONS Discontinued Medications Generic Name Dose Route Start Last Admin Trade Name Freq PRN Reason Stop Dose Admin Prednisone 40 mg 12/17/24 10:19 12/17/24 10:25 Prednisone 20mg Tab PO 12/17/24 10:20 40 mg ONCE ONE Administration ORDERS Category Date Time Status Calcaneus XR left minimum 2 views [XR calcaneus LT min Exams 12/17/24 10:19 Taken 2V] Stat Medical Decision Narrative: 39-year-old female presenting with pain to the posterior left heel. States that this has been going on for about a year, has not followed up about it. Intermittently flares up, able to work itself out, has not been able to work it out for about a week at this point, so came in for further evaluation. Is never sought care for this. No injury to the area. No other concerns. Pain is mild in intensity and does not radiate. Associated with throbbing at night. History obtained with patient. On my evaluation, very clinically well. Has tenderness with deep palpation at the insertion point of the Achilles tendon. Range of motion is intact, neurovascularly intact. Differential includes enthesitis, bone spurs, sprain, among others. X-rays to be obtained, patient given prednisone. On independent interpretation, patient has bone spurs likely precipitating enthesitis of the Achilles tendon. Given follow-up with Dr. Leyva. Because patient at baseline without signs or symptoms of clinical decompensation, deemed appropriate for discharge. Results were relayed to patient who voiced understanding and were agreeable to outpatient management and follow up. I discussed my clinical impression with patient and answered all questions. At this time, the evidence for any other entities in the differential is insufficient to warrant any further testing or ED observation. This was explained as well. Advisory was given that persistent or worsening symptoms require further evaluation. I confirmed the understanding of this discussion. Ramp Manager disclaimer Much of this encounter note is an electronic primary clinician spoken language to printed text. Electronic primary clinician of the spoken language may permit errors. Although I have reviewed the note, some errors may still exist. Critical Care Critical Care Time Critical Care Time: No
== END 2024-12-17 10:55 | disposition home or self-care (01) ==
PROVIDERS: Emergency Provider Emergency Medicine; PCP Internal Medicine Adolescent Medicine
DX: M77.52 Other enthesopathy of left foot and ankle (principal); M79.672 Pain in left foot; F17.210 Nicotine dependence, cigarettes, uncomplicated
CPT/HCPCS: 73650; 99283

== ENCOUNTER 2025-04-03 18:32 | Emergency (ER) | payer SELFPAY ==
[2025-04-03] VITALS (9 sets, daily range): BP systolic 118–172; BP diastolic 70–104; PULSE 55–76; RESP 18–20; TEMP 36.6–36.8; O2SAT 94–100; BMI 40.0
--- NOTE | 2025-04-03 18:37 | PC.NURSE ---
Elmira Amado checked FSBS and it was 113
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
--- NOTE | 2025-04-03 18:40 | CT_ITS ---
PROCEDURE INFORMATION: Exam: CT Head Without Contrast Exam date and time: 04/03/2025 6:58 PM Age: 39 years old Clinical indication: Injury or trauma; Additional info: Trauma, brick fireplace collapsed on head TECHNIQUE: Imaging protocol: Computed tomography of the head without contrast. Radiation optimization: All CT scans at this facility use at least one of these dose optimization techniques: automated exposure control; mA and/or kV adjustment per patient size (includes targeted exams where dose is matched to clinical indication); or iterative reconstruction. COMPARISON: CT HEAD/BRAIN WO CON 04/03/2025 6:58 PM FINDINGS: Brain: Normal. No hemorrhage. Unremarkable white matter. No mass effect. Cerebral ventricles: No ventriculomegaly. Paranasal sinuses: Visualized sinuses are unremarkable. No fluid levels. Mastoid air cells: Visualized mastoid air cells are well aerated. Bones: Right frontal calvarium nondisplaced fracture better seen on prior facial CT. Soft tissues: Moderate right frontal and periorbital subcutaneous hyperattenuating opacities compatible with small hematoma/contusion. IMPRESSION: No acute intracranial abnormality.
--- NOTE | 2025-04-03 18:40 | CT_ITS ---
PROCEDURE INFORMATION: Exam: CT Maxillofacial Without Contrast Exam date and time: 04/03/2025 7:02 PM Age: 39 years old Clinical indication: Injury or trauma; Additional info: Trauma, brick fireplace collapsed on head TECHNIQUE: Imaging protocol: Computed tomography of the face without contrast. Radiation optimization: All CT scans at this facility use at least one of these dose optimization techniques: automated exposure control; mA and/or kV adjustment per patient size (includes targeted exams where dose is matched to clinical indication); or iterative reconstruction. COMPARISON: CT FACIAL BONES WO CON 04/03/2025 7:02 PM FINDINGS: Paranasal sinuses: No air-fluid levels. Orbital cavities: Orbits are normal. Globes are unremarkable. Bones: Nondisplaced fracture involving the right frontal calvarium that extends to the superior rim of the orbit. Soft tissues: Moderate right frontal soft tissue swelling. IMPRESSION: Nondisplaced fracture involving the right frontal calvarium that extends to the superior rim of the orbit.
--- NOTE | 2025-04-03 18:40 | XR_ITS ---
PROCEDURE INFORMATION: Exam: XR Chest Exam date and time: 04/03/2025 6:42 PM Age: 39 years old Clinical indication: Injury or trauma; Other: Chimney collapse; Blunt trauma (contusions or hematomas) TECHNIQUE: Imaging protocol: Radiologic exam of the chest. Views: 1 view. COMPARISON: CR XR CHEST PORTABLE 10/01/2024 8:24 AM FINDINGS: Lungs: Unremarkable. No consolidation. Pleural spaces: Unremarkable. No pleural effusion. No pneumothorax. Heart/Mediastinum: Unremarkable. No cardiomegaly. Bones/joints: Unremarkable. IMPRESSION: No acute findings.
--- NOTE | 2025-04-03 18:42 | XR_ITS ---
PROCEDURE INFORMATION: Exam: XR Left Ankle Exam date and time: 04/03/2025 7:06 PM Age: 39 years old Clinical indication: Injury or trauma; Other: Trauma, pain; Blunt trauma; Ankle; Left TECHNIQUE: Imaging protocol: Radiologic exam of the left ankle. Views: 3 or more views. COMPARISON: CR XR ANKLE LT MIN 3V 04/03/2025 7:06 PM FINDINGS: Bones/joints: Small marginal osteophytes and degenerative changes involving the left ankle mortise. Intermediate sized enthesophytes involving the calcaneus. No evidence of acute osseous abnormality. Soft tissues: Normal. IMPRESSION: 1. Small marginal osteophytes and degenerative changes involving the left ankle mortise. 2. No evidence of acute osseous abnormality.
--- NOTE | 2025-04-03 18:42 | XR_ITS ---
PROCEDURE INFORMATION: Exam: XR Left Foot Exam date and time: 04/03/2025 7:06 PM Age: 39 years old Clinical indication: Injury or trauma; Other: Trauma, pain; Blunt trauma; Foot; Left TECHNIQUE: Imaging protocol: Radiologic exam of the left foot. Views: 3 or more views. COMPARISON: CR XR CALCANEUS LT MIN 2V 12/17/2024 10:20 AM FINDINGS: Bones/joints: Intermediate sized enthesophytes involving the calcaneus. Soft tissues: Moderate left forefoot soft tissue swelling without acute osseous abnormality. IMPRESSION: Moderate left forefoot soft tissue swelling without acute osseous abnormality.
--- NOTE | 2025-04-03 18:42 | XR_ITS ---
PROCEDURE INFORMATION: Exam: XR Left Knee Exam date and time: 04/03/2025 7:06 PM Age: 39 years old Clinical indication: Injury or trauma; Other: Trauma, pain; Blunt trauma; Knee; Left TECHNIQUE: Imaging protocol: Radiologic exam of the left knee. Views: 3 views. COMPARISON: CR XR KNEE LT 3V 04/03/2025 7:06 PM FINDINGS: Bones/joints: Normal. Soft tissues: Normal. IMPRESSION: No acute findings.
--- NOTE | 2025-04-03 18:42 | XR_ITS ---
PROCEDURE INFORMATION: Exam: XR Left Tibia and Fibula Exam date and time: 04/03/2025 7:06 PM Age: 39 years old Clinical indication: Injury or trauma; Other: Trauma, pain; Blunt trauma; Lower leg; Left TECHNIQUE: Imaging protocol: Radiologic exam of the left tibia and fibula. Views: 2 views. COMPARISON: CR XR TIBIA FIBULA LT 2V 04/03/2025 7:06 PM FINDINGS: Bones/joints: Normal. Soft tissues: Normal. IMPRESSION: No acute findings.
--- NOTE | 2025-04-03 18:47 | ECG_ITS ---
APPROVED REPORT Exam: Resting ECG HR:62 bpm ECG Measurements Heart Rate 62 AXES PA 158 P 59 QRSd 98 QRS 97 QT 413 T 29 QTc 417 Conclusion SINUS RHYTHM BORDERLINE RIGHT AXIS DEVIATION [QRS AXIS > 90] BORDERLINE ECG UNCONFIRMED REPORT Electronically signed by : BLAZE VÁSQUEZ, 04/04/2025 04:12:45
[2025-04-03 18:54] LABS: Basophils % 0.3 % (0.1-2.0); Eosinophils # 0.1 Kmm3 (0.0-0.4); Eosinophils % 0.9 % (0.1-12.0); Hematocrit 40.7 % (37.0-47.0); Hemoglobin 13.6 g/dL (12.2-16.2); Immature Granulocytes # 0.02 10^3uL; Immature Granulocytes % 0.2 %; Lymphocytes # 4.3 K/mm3 (0.7-4.5); Lymphocytes % 50.2 % (10-50); Mean Corpuscular HGB Conc 33.4 g/dL (31.8-35.4); Mean Corpuscular Hemoglobin 28.5 pg (27.0-31.2); Mean Corpuscular Volume 85.1 fl (81-99); Mean Platelet Volume 10.5 fl (7.4-10.4); Monocytes # 0.9 K/mm3 (0.1-1.0); Monocytes % 10.7 % (1.7-9.3); Neutrophils # 3.2 K/mm3 (1.8-7.8); Neutrophils % 37.7 % (37.0-80.0); Nucleated Red Blood Cells # 0 10^3/uL; Nucleated Red Blood Cells % 0 %; Platelet Count 262 K/mm3 (142-424); Red Blood Count 4.78 M/mm3 (4.20-5.40); Red Cell Distribution Width 13.5 % (11.5-17.5); Red Cell Distribution Width-SD 41.7 fL; White Blood Count 8.6 K/mm3 (4.8-10.8)
--- NOTE | 2025-04-03 19:00 | PC.NURSE ---
I notified resp that a green top was sent to lab for a vbg.
[2025-04-03] MEDS: 0.9 % SODIUM CHLORIDE 1000ML 1,000 ML 999 ML IV (19:07)
[2025-04-03 19:09] LABS: VBG Base Excess -3.2 mmol/L (-2.4-2.3); VBG HCO3 21.8 mmol/L (23-30); VBG PCO2 37.5 mmol/L (35-51); VBG PH 7.38 mmol/L (7.31-7.41)
[2025-04-03 19:11] LABS: Albumin Level 5.1 g/dl (3.5-5.0); Chloride 103 mmol/L (98-107); Potassium 4.6 mmoL/L (3.5-5.1); Sodium 137 mmol/L (136-145)
[2025-04-03 19:11] LABS: Lactate Venous 2.6 mmol/L (0.4-2.0)
[2025-04-03 19:14] LABS: Alanine Aminotransferase 50 U/L (12-78); Albumin/Globulin Ratio 1.5 (1.1-1.8); Alkaline Phosphatase 44 U/L (38-126); Anion Gap 16.6 mEq/L (5-15); Aspartate Amino Transferase 53 U/L (14-36); Bilirubin,Total 1.1 mg/dl (0.2-1.3); Blood Urea Nitrogen 9 mg/dl (7-17); Calcium 8.9 mg/dl (8.4-10.2); Carbon Dioxide 22 mmol/L (22.0-30.0); Creatine Kinase 181 U/L (30-135); Creatinine Clearance Estimated 134 mL/min (50-200); Estimated Glomerular Filt Rate 69 ml/min (>60); GFR (African American) 84 ML/MIN (>60); Globulin 3.5 g/dL (1.3-3.2); Glucose 114 mg/dl (74-100); Total Protein,Serum 8.6 g/dl (6.3-8.2)
[2025-04-03 19:15] LABS: HCG Qualitative, Serum Negative (Negative)
--- NOTE | 2025-04-03 19:15 | HMH.EDGENADL ---
Discharge Plan Disposition Patient Disposition: Home, Self-Care Condition: Good Prescriptions Prescriptions: New amoxicillin-pot clavulanate 875-125 mg tablet 1 tab PO BID Qty: 20 0RF bacitracin 500 unit/gram ointment 1 applic topical BID Qty: 30 0RF oxycodone 5 mg tablet 5 mg PO Q8H PRN (Reason: pain) Qty: 12 0RF Referrals Follow up/Referrals: Provider,Referral, MD [Primary Care Provider, Medical] - See instructions Activity Restrictions/Add. Instructions Additional Instructions/Restrictions: You were evaluated in the emergency department today. 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 Use caution when taking oxycodone, as it is a narcotic pain medication. Do not drive or operate heavy machinery while taking this medication. Please follow-up closely with [facility] facial trauma team. They should contact you over the next 24 to 48 hours with an appointment. Keep your wounds clean and dry. Do not submerge under any water. Apply antibiotic ointment twice daily. Once the wounds have completely healed and the sutures have dissolved over the next 7 to 10 days, please keep them covered with sunscreen. Your sutures in your face will dissolve on their own. The suture in your left knee needs to be removed in about 7 to 10 days. Return to the emergency department right away for new or worsening symptoms. Clinical Impressions Clinical Impression: Forehead laceration, Laceration of knee, left, Acute pain of left foot Fracture of frontal bone Qualifiers: Encounter type: initial encounter Fracture type: open Qualified Code(s): S02.0XXB - Fracture of vault of skull, initial encounter for open fracture Stand Alone Forms Stand Alone Forms: Work/School Release Instructions Patient Instructions: DI for Concussion, DI for Laceration Repair, DI for Laceration Repair -- Complex, DI for Orbital Fracture, DI for Skull Fracture Print Language Print Language: Vincentian Discharge ED Provider: Meenakshi Lopez General Adult HPI General Chief complaint: Trauma Stated complaint: Trauma Time Seen by Provider: 04/03/25 18:38 Mode of Arrival: EMS Source of Information: Patient and EMS Description of Symptoms (Recalled from ER Triage Doc. by RN): Patient arrival via EMS, patient reports she was pulling ulises off a chimney when it collapsed. Reports falling bricks hit her head causing her to fall to the ground. Patient states she remembers getting hit and falling, denies LOC but states there was a period of time she could hear her boyfriend but felt like she couldn't repond to him. C-Collar in place upon arrival. Lacerations to left knee and forehead noted, bleeding controlled. VSS upon arrival. Patient alert and oriented. History of Present Illness HPI narrative: This patient is a 39-year-old female with a history of asthma presented to the emergency department for evaluation as a trauma alert. Patient was pulling ulises outside off of a chimney, when multiple bricks fell, striking her in the head. She did fall to the ground, but she does not believe that she lost consciousness. She was found on the ground by her boyfriend. She states that she could hear him talking but felt like she could not respond to them. She complains of headache, feeling that she got too hot, and left knee and left foot pain. She reports she was feeling okay prior to this but had been working outside in the heat for several hours. She is unsure when her last tetanus shot was. She denies any back pain, abdominal pain, numbness, tingling. She does notes that she is having some mild chest tenderness. Related Data Previous Rx's ?Medication ?Instructions ?Recorded amoxicillin 875 mg-potassium 1 tab PO BID #20 tabs 04/03/25 clavulanate 125 mg tablet bacitracin 500 unit/gram topical 1 applic topical BID #30 grams 04/03/25 ointment oxycodone 5 mg tablet 5 mg PO Q8H PRN pain #12 tabs 04/03/25 Allergies Allergy/AdvReac Type Severity Reaction Status Date / Time hydrocodone (HYDROCODONE) Allergy Intermediate ITCHING Verified 03/06/25 08:12 [facility] Disclaimer: The information contained in this section may have been updated after the patient was seen, as this information can be updated by other users. Medical History Asthma Surgical History Hx of cholecystectomy Hx of section Family History Father Diabetes Social History Smoking Status: Current every day smoker tobacco type: cigarettes packs per day: 1 alcohol intake: never current occupational status: other Travel in the last 8 weeks?: None Have you lived/traveled outside US in past 30 days?: No Contact w/someone who lives/traveled outside US past 30 days?: No Exposure to someone with infectious disease in past 14 days?: No Do you have a fever (greater than 100.4 F or 38 C)?: No Have you tested positive for COVID-19?: No Exposed to someone with COVID-19 in past 14 days?: No Do you have a sore throat?: No Do you have a cough?: No Do you have any weakness?: No Do you have any diarrhea?: No Are you experiencing any unusual bleeding?: No Do you have any muscle aches/pain?: No Do you have any abdominal pain?: No Are you experiencing loss of taste or smell?: No Other Medical History Have you received the Flu Vaccine for this season: No Have you received the Pneumonia Vaccine: No ROS Obtained: Yes All systems reviewed & no additional complaints except as documented Physical Exam General General appearance: alert, in no apparent distress and obese Head Head exam: normocephalic Expanded Head Exam Head image:  1. Laceration that is currently hemostatic Eye Eye exam: Present normal appearance, PERRL and EOMI ENT ENT exam: Present normal exam, normal oropharynx, mucous membranes moist and normal external ear exam Neck Neck exam: Present trachea midline and other (C-collar in place); Absent tenderness Chest Chest inspection: Present symmetric chest wall rise and tenderness (Minimal chest tenderness with no palpable crepitus, step-offs, or deformities.) Respiratory Respiratory exam: Present normal lung sounds bilaterally; Absent respiratory distress, wheezes, stridor or accessory muscle use Cardiovascular Cardiovascular exam: Present regular rate and normal rhythm Abdominal Exam Abdominal exam: Present soft; Absent distention, tenderness or guarding Extremities Exam Extremities exam: Present full ROM, tenderness, normal capillary refill and other (Small laceration just above the left knee. Tenderness to palpation of the left knee and the left foot. All compartment soft, neurovascularly intact distally); Absent edema Back Exam Back exam: Present normal inspection and full ROM; Absent tenderness Neurological Exam Neurological exam: Present alert, oriented X3, CN II-XII intact and normal gait; Absent motor sensory deficit Psychiatric Psychiatric exam: Present normal affect and normal mood Skin Skin exam: Present warm and dry Medical Decision Making Medical Records Medical records reviewed: Yes I reviewed the patient's medical records. Screening: Per USPSTF and CDC recommendations, given the prevalence of disease in our region, it is our hospital?s policy to screen for HIV and viral Hepatitis for all patients aged 18 and over and those with ongoing risk factors. [place] Inquiry Pt receiving controlled substance: No Vital Signs: 04/03/25 18:46 04/03/25 18:50 04/03/25 18:56 Temperature 98.2 F 98.2 F Temperature Source Oral Oral Pulse Rate 64 Pulse Rate [Left] 55 L 55 L Respiratory Rate 20 19 20 Blood Pressure Blood Pressure [Right Arm] 118/70 118/70 Blood Pressure Mean [Right Arm] 86 86 Blood Pressure Source [Right Arm] Manual Cuff/ Auscultation Manual Cuff/ Auscultation Blood Pressure Position Blood Pressure Position [Right Arm] Supine 02 Sat by Pulse Oximetry 100 94 L 100 Oxygen Delivery Method Room Air Room Air Room Air 04/03/25 19:30 04/03/25 19:39 04/03/25 19:45 Temperature 98 F Temperature Source Oral Pulse Rate 65 64 76 Pulse Rate [Left] Respiratory Rate 18 Blood Pressure 148/82 H 148/82 H Blood Pressure [Right Arm] Blood Pressure Mean [Right Arm] Blood Pressure Source [Right Arm] Blood Pressure Position Sitting Blood Pressure Position [Right Arm] 02 Sat by Pulse Oximetry 100 100 Oxygen Delivery Method Room Air 04/03/25 20:00 04/03/25 20:18 04/03/25 20:35 Temperature Temperature Source Pulse Rate 60 67 59 L Pulse Rate [Left] Respiratory Rate Blood Pressure 172/104 H 168/100 H 151/72 H Blood Pressure [Right Arm] Blood Pressure Mean [Right Arm] Blood Pressure Source [Right Arm] Blood Pressure Position Blood Pressure Position [Right Arm] 02 Sat by Pulse Oximetry 100 100 95 Oxygen Delivery Method Room Air Lab Data Lab results reviewed: Yes I reviewed the patient's lab results. Lab Results 04/03/25 18:41: VBG pH 7.38, VBG pCO2 37.5, VBG pO2 62.0 H, VBG HCO3 21.8 L, VBG Total CO2 23.0, VBG O2 Saturation 91.0 H, VBG Base Excess -3.2 L, VBG Lactic Acid 2.6 H 04/03/25 18:42: WBC 8.6, RBC 4.78, Hgb 13.6, Hct 40.7, MCV 85.1, MCH 28.5, MCHC 33.4, RDW 13.5, Plt Count 262, MPV 10.5 H, Neut % (Auto) 37.7, Lymph % (Auto) 50.2 H, [place] % (Auto) 10.7 H, Eos % (Auto) 0.9, Baso % (Auto) 0.3, Neut # (Auto) 3.2, Lymph # (Auto) 4.3, [place] # (Auto) 0.9, Eos # (Auto) 0.1, Baso # (Auto) 0.0, PT 11.0, INR 0.99, APTT 22.2 L, Sodium 137, Potassium 4.6, Chloride 103, Carbon Dioxide 22, Anion Gap 16.6 H, BUN 9, Creatinine 0.90, Estimated Creat Clear 134, Estimated GFR 69, Est GFR ( Amer) 84, Glucose 114 H, Calcium 8.9, Total Bilirubin 1.1, AST 53 H, ALT 50, Alkaline Phosphatase 44, Total Creatine Kinase 181 H, Troponin I 0.02, Total Protein 8.6 H, Albumin 5.1 H, Globulin 3.5 H, Albumin/Globulin Ratio 1.5, Serum HCG, Qual Negative, Plasma/Serum Alcohol < 10 04/03/25 21:34: Urine Color Yellow, Urine Appearance Clear, Urine pH 6.0, Ur Specific [place] 1.015, Urine Protein Negative, Urine Glucose (UA) Negative, Urine Ketones Negative, Urine Blood Negative, Urine Nitrate Negative, Urine Bilirubin Negative, Urine Urobilinogen 0.2, Ur Leukocyte Esterase Negative, Urine RBC 3-5, Urine WBC 3-5, Ur Squamous Epith Cells 20-50, Urine Bacteria 1+, Hyaline Casts 3-5, Urine Mucus 1+, Urine Opiates Screen Negative, Urine Methadone Screen Negative, Ur Barbituates Screen Negative, Ur Phencyclidine Scrn Negative, Ur Amphetamines Screen Negative, U Benzodiazepines Scrn Negative, Urine Cocaine Screen Negative, U Marijuana (THC) Screen Positive H 04/03/25 18:42 04/03/25 18:42 Orders (Tests/Meds): ED MEDICATIONS Discontinued Medications Generic Name Dose Route Start Last Admin Trade Name Jordyn PRN Reason Stop Dose Admin Acetaminophen 1,000 mg 04/03/25 18:42 04/03/25 19:23 Acetaminophen 1,000mg/100ml Vial IV 04/03/25 18:43 1,000 mg ONCE ONE Administration Sodium Chloride 1,000 mls @ 999 mls/hr 04/03/25 18:42 04/03/25 19:07 Sod Chlor 0.9% 1000ml Bag IV 04/03/25 19:42 999 mls/hr .Q1H1M ONE Administration Ampicillin Sodium/Sulbactam 100 mls @ 200 mls/hr 04/03/25 20:01 04/03/25 20:14 Sodium 3 gm/ Sodium Chloride IV 04/03/25 20:02 200 mls/hr ONCE ONE Administration Lidocaine/Epinephrine 20 ml 04/03/25 20:02 04/03/25 20:14 Lidocaine 1% W/Epi 1:100,000 20ml Vial IJ 04/03/25 20:03 20 ml ONCE ONE Administration Ondansetron HCl 4 mg 04/03/25 18:42 04/03/25 19:23 Ondansetron 4mg/2ml Vial IV 04/03/25 18:43 4 mg ONCE ONE Administration Sodium Chloride 10 ml 04/03/25 18:40 Sodium Chloride 0.9% 10ml Flush Syringe IV 05/03/25 18:39 NEEDED PRN Maintain IV Site Tetanus/Reduced Diphtheria/Acell Pertussis 0.5 ml 04/03/25 18:41 04/03/25 19:23 Tet/Diphth/Pert-Adult 0.5ml Syringe IM 04/03/25 18:42 0.5 ml .ONCE ONE Administration ORDERS Category Date Time Status CT cervical spine wo con Stat Cat Scan 04/03/25 18:[address] facial bones wo con Stat Cat Scan 04/03/25 18:[address] head/brain wo con Stat Cat Scan 04/03/25 18:40 Completed Ankle XR - Left minimum 3 Views [XR ankle LT min 3V] Exams 04/03/25 18:42 Completed Stat Foot XR left minimum 3 views [XR foot LT min 3V] Stat Exams 04/03/25 18:42 Completed Knee XR left 3 views [XR knee LT 3V] Stat Exams 04/03/25 18:42 Completed Tibia/fibula XR left 2 views [XR tibia fibula LT 2V] Exams 04/03/25 18:42 Completed Stat XR chest portable Stat Exams 04/03/25 18:40 Completed Activated Partial Thrombo Time Stat Lab 04/03/25 18:42 Completed CK [Creatine Kinase] Stat Lab 04/03/25 18:42 Completed Complete Blood Count Auto Diff Stat Lab 04/03/25 18:42 Completed Comprehensive Metabolic Panel Stat Lab 04/03/25 18:42 Completed Drug Screen,Urine Stat Lab 04/03/25 21:34 Completed Ethyl Alcohol Stat Lab 04/03/25 18:42 Completed HCG Qualitative, Serum Stat Lab 04/03/25 18:42 Completed Prothrombin Time INR Stat Lab 04/03/25 18:42 Completed Trop I [Troponin I] Stat Lab 04/03/25 18:42 Completed Urinalysis and Microscopic Stat Lab 04/03/25 21:34 Completed VBG [Venous Blood Gas] Stat RT 04/03/25 18:41 Completed ECG Data Tracing #1: I reviewed this ECG and interpreted as documented below: Normal sinus rhythm with a ventricular of [address] changes concerning for STEMI. Normal intervals ECG initial impression date: 04/03/25 ECG initial impression time: 18:49 Medical Decision Narrative: In summary, this patient is a 39-year-old female presenting to the Emergency Department for evaluation of trauma alert after bricks fell on her, striking her in the head. Differential diagnoses considered include but are not limited to head trauma, chest trauma, abdominal trauma, polytrauma, intracranial hemorrhage, skull fracture. Ruling out the most morbid conditions drove assessment. It should be noted patient's history includes obesity and asthma which may or may not be at goal therapy. This complicates all aspects of care by increasing patient's risk for morbidity. On exam, the patient is lying on the stretcher in no acute distress. She is alert and neurologically intact, neurovascular intact in all 4 extremities. She does have a laceration to her forehead as well as a laceration to her left knee. Her chest is mildly tender to palpation without obvious deformity. She has some mild tenderness of her left knee and left foot on head to toe exam as well. Otherwise, exam is reassuring. Vitals are normal on cardiac telemetry. Workup included CBC, CMP, coags, test, urinalysis, CK, lactic acid, VBG as well as CT head, CT face, CT C-spine, chest x-ray, and x-rays of the injured left lower extremity. She was given Tdap booster as well as IV acetaminophen and a bolus of IV fluids. EKG obtained is reassuring. I independently interpreted x-rays and CT scans prior to radiology read and noted that the patient had a nondisplaced skull fracture with no intracranial hemorrhage. No other acute fracture noted. Extraocular muscles are intact. No visual disturbance. I called and had interactive discussion with face surgery given the fracture. I had Dr. Sanchez commissioned fire officer with Dr. Schroeder with a surgery who recommended repair here and close outpatient follow-up. They recommended antibiotics, including Augmentin. Patient was given IV Unasyn here.. Labs here obtained are reassuring. Workup otherwise is reassuring. After informed consent was obtained from the patient, her face lacerations were repaired and her knee laceration was repaired as well. Her facial laceration was contaminated with debris and required extensive washout and debridement. She also required deep sutures for close approximation of her subcutaneous tissues. Washout was performed with Betadine and sterile saline. She tolerated repairs very well and was able to ambulate throughout the emergency department out issue. Given this, she was given prescriptions for Augmentin, oxycodone, and was given instructions for close follow-up with face surgery at . They will call her to schedule an appointment per their transfer center. Strict return precautions were given as well as instructions for wound care. She was discharged after all questions were answered. Procedures Risk/Benefits of Procedure(s) Were Explained: Yes Laceration Laceration 1: Site: face Side (If applicable): right Size (cm): 5 Description: irregular and contaminated Depth: involves subcutaneous layer Local Anesthetic: lidocaine 1% and with epi Amount of anesthesia used (mL): 5 Pre-repair: wound explored, irrigated extensively, extensive debridement and wound margins revised Skin layer closed with: other (5-0 fast-absorbing gut) Size (cm): 5-0 Number of sutures: 10 Technique: simple, interrupted Subcutaneous layer closed with: chromic gut Size: 4-0 Number of sutures: 3 Technique: simple, interrupted Laceration 2: Site: lower extremity Side (If applicable): left Size (cm): 1 Description: linear Depth: simple, single layer Local Anesthetic: lidocaine 1% and with epi Amount of anesthesia used (mL): 1 Pre-repair: wound explored, irrigated extensively and deep structures intact Skin layer closed with: nylon Size (cm): 3-0 Number of sutures: 1 Technique: simple, interrupted Critical Care Critical Care Time Critical Care Time: No
[2025-04-03 19:19] LABS: Ethyl Alcohol < 10 mg/dl (0-10)
[2025-04-03 19:22] LABS: Activated Partial Thrombo Time 22.2 seconds (22.8-30.6); INR 0.99 (0.9-1.1)
[2025-04-03] MEDS: ONDANSETRON 4MG/2ML VIAL 4 MG IV (19:23)
[2025-04-03] MEDS: TET/DIPHTH/PERT-ADULT 0.5ML SYRINGE 0.5 ML IM (19:23)
[2025-04-03] MEDS: ACETAMINOPHEN 1,000MG/100ML VIAL 1000 MG IV (19:23)
[2025-04-03 19:25] LABS: Troponin I 0.02 ng/ml (0.00-0.034)
--- NOTE | 2025-04-03 19:31 | PC.NURSE ---
called [facility] about a transfer. sated they would call back
--- NOTE | 2025-04-03 19:51 | PC.NURSE ---
C-Collar remains in place, pt readjusted in bed for comfort. Wet saline gauze placed over laceration to forehead. Dried blood wiped off from patient's face; GCS 15, NAD noted, RR even and non labored, skin pwd. Family at the bedside, voices no needs at this time.
--- NOTE | 2025-04-03 20:01 | PC.NURSE ---
Provider on the phone with at this time.
--- NOTE | 2025-04-03 20:07 | PC.NURSE ---
C-Collar removed at this time per verbal order of Dr Lopez, CMS intact.
[2025-04-03] MEDS: LIDOCAINE 1% W/EPI 1:100,000 20ML VIAL 20 ML IJ (20:14)
[2025-04-03] MEDS: AMPICILLIN SODIUM/SULBACTAM 3 GM in 0.9 % SODIUM CHLORIDE 100 ML IV (20:14)
--- NOTE | 2025-04-03 21:12 | PC.NURSE ---
Pt head laceration irrigated with NS and [place] Lens to removed debris. Pt tolerated well. Dr Lopez at bedside to suture.
[2025-04-03 21:41] LABS: Microscopic, Urine URINE MICROSCOPIC (MICROSCOPIC)
[2025-04-03 21:48] LABS: Appearance,Urine CLEAR (Clear); Bilirubin,Urine Negative (Negative); Blood, Urine Negative (Negative); Color,Urine YELLOW (Yellow); Glucose,Urine (UA) Negative (Negative); Ketones,Urine Negative (Negative); Leukocyte Esterase,Urine Negative (Negative); Nitrate,Urine Negative (Negative); Protein,Urine Negative (Negative); Specific Gravity, Urine 1.015 (1.005-1.030); Urobilinogen,Urine 0.2 EU/dl (0.2)
[2025-04-03 22:03] LABS: Bacteria,Urine 1+ /lpf; Mucus,Urine 1+ /lpf; Squamous Epithelial Cell,Urine 20-50 #/hpf (0-5)
[2025-04-03 22:07] LABS: Amphetamine/Metha Screen,Urine Negative ng/ml (<1000); Benzodiazepines Screen,Urine Negative ng/ml (<200)
[2025-04-03 22:08] LABS: Barbiturates Screen,Urine Negative ng/ml (<200); Methadone Screen,Urine Negative ng/ml (<300)
[2025-04-03 22:09] LABS: Cannabinoid Screen,Urine Positive ng/ml (<50)
[2025-04-03 22:10] LABS: Cocaine Screen,Urine Negative ng/ml (<300); Opiate Screen,Urine Negative ng/ml (<300)
[2025-04-03 22:11] LABS: Phencyclidine Screen,Urine Negative ng/ml (<25)
--- NOTE | 2025-04-03 22:26 | PC.NURSE ---
This RN goes to DC patient, clothes that she arrived in have been cut off. Made patient aware that we have a closet with clothes that I could go through and find for her, patient states no it's ok, Ill just wrap another gown around me and go out in this Made patient aware that it would be no trouble, pt insisting on going as is because to be honest with you I just want to go home Pt denies need for wheelchair, ambulates with slow steady gait out of the department with boyfriend at her side.
== END 2025-04-03 22:27 | disposition home or self-care (01) ==
PROVIDERS: Emergency Provider Emergency Medicine
DX: S01.81XA Laceration without foreign body of other part of head, initial encounter (principal); S81.012A Laceration without foreign body, left knee, initial encounter; S02.0XXA Fracture of vault of skull, initial encounter for closed fracture; M79.672 Pain in left foot; W20.8XXA Other cause of strike by thrown, projected or falling object, initial encounter; F17.210 Nicotine dependence, cigarettes, uncomplicated
CPT/HCPCS: 70450; 70486; 71045; 72125; 73562; 73590; 73610; 73630; 80053; 80307; 80320; 81001; 82550; 82803; 84484; 84703; 85025; 85610; 85730; 90471; 90715; 93005; 96361; 96374; 96375; 99285; G0390; J0131; J0295; J2004; J2405; J7030

== ENCOUNTER 2025-04-17 01:43 | Emergency (ER) | payer SELFPAY ==
[2025-04-17 01:51] VITALS: BP 137/94; PULSE 73; RESP 16; TEMP 37.1; O2SAT 98; BMI 40.0
--- OUTSIDE RECORDS SUMMARY | 2025-04-17 01:51 | XMS_ITS | Encounter Summary ---
Author Organization Healthcare Address [address] [place] [address] Care Team Providers Care Food Service Order Clerk Name Role Phone Unavailable Primary Care Provider Unavailabl e Encounter Details Date Type Department Care Team (Late st Contact Info) Description 04/03/2025 Orders Only External Location [address] [place] [address] Meenakshi Lopez, [address] [place] [address] Social History Tobacco Use Types Packs/Day Years Used Date Smoking Tobacco: Never Assessed Comments Unknown Sex and Gender Information Value Date Recorded Sex Assigned at Not on file Legal Sex Female 7:46 PM EDT Gender Identity Not on file Sexual Orientation Not on file documented as of this encounter Plan of Treatment Not on file documented as of this encounter Procedures Procedure Name Priority Date/Time Associated Diagnosis Comments XR OUTSIDE IMAGES 04/03/2025 7:06 PM EDT documented in this encounter Results * XR OUTSIDE IMAGES (04/03/2025 7:06 PM EDT) Anatomical Region Laterality Modality Radiographic Kandace ging 04/03/2025 7:06 PM EDT Meenakshi BENSON XR PROCEDURES Final Result documented in this encounter Visit Diagnoses Not on filedocumented in this encounter
--- OUTSIDE RECORDS SUMMARY | 2025-04-17 01:51 | XMS_ITS | Clinical Summary ---
Author Organization [facility] Address [address] [place] [id number] Phone [email or web address] Care Team Providers Care Automobile Washer Steam Name Role Phone Unavailable Primary Care Provider Unavailabl e Allergies No known active allergies Medications No known medications Active Problems No known active problems Social History Tobacco Use Types Packs/Day Years Used Date Smoking Tobacco: Every Day Cigarettes 1 23 Smokeless Tobacco: Never Intimate Partner Violence Answer Date R ecorded Insults You Not on file 01/23/2021 Threatens You Not on file 01/23/2021 Screams at You Not on file 01/23/2021 Physically Hurt Not on file 01/23/2021 Intimate Partner Violence Score Not on file 01/23/2021 Stress Answer Date Recorded Stress in your Life Not on file 08/14/2024 Dealing with Stress 3 08/14/2024 Comments Unknown Sex and Gender Information Value Date Recorded Sex Assigned at Not on file 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 Gender Identity Not on file Sexual Orientation Not on file Plan of Treatment Health Maintenance Due Date Last Done Comments Dental Cleaning/Exam 1984 HIV Screening 1984 Hepatitis C Screening 1984 Asthma Spirometry 1989 Cervical Cancer Screening 2000 Annual Preventive Exam 2002 Hep B Infection Screening - Triple Screen 2002 Hepatitis B Immunization (1 of 3 - 19+ 3-dose series) 2003 Pneumococcal: Ped (0 to 5 Yr s) and At-Risk Member (6 to 64 Yrs) (1 of 2 - PCV) 2003 Tetanus Diphtheria and Pertu ssis Immunization (1 - Tdap) 2003 Breast Cancer Screening 2014 Covid-19 Immunization (1 - 2 024-25 season) 2024 Influenza Immunization (#1) 2025 HIB Immunization Aged Out No longer e ligible based on patient's age to complete this topic HPV Immunization Aged Out No longer e ligible based on patient's age to complete this topic Hepatitis A Immunization Aged Out No longer eligible based on patient's age to complete this topic Polio Immunization Aged Out No longer eligible based on patient's age to complete this topic Varicella Immunization Aged Out No lo nger eligible based on patient's age to complete this topic Insurance OPT OUT NO COPAY NB
--- OUTSIDE RECORDS SUMMARY | 2025-04-17 01:51 | XMS_ITS | Encounter Summary ---
Author Organization Healthcare Address [address] [place] [address] Care Team Providers Care Chimney Builder Name Role Phone Unavailable Primary Care Provider Unavailabl e Encounter Details Date Type Department Care Team (Late st Contact Info) Description 04/03/2025 Orders Only External Location [address] [place] [address] Meenakshi Lopez, [address] [place] [address] Social History Tobacco Use Types [...] Procedure Name Priority Date/Time Associated Diagnosis Comments CT OUTSIDE IMAGES 04/03/2025 7:02 PM EDT documented in this encounter Results * CT OUTSIDE IMAGES (04/03/2025 7:02 PM EDT) Anatomical Region Laterality Modality Computed Tomogra phy 04/03/2025 7:02 PM EDT Meenakshi SOTOG CT PROCEDURES Final Result documented in this encounter Visit Diagnoses Not on filedocumented in this encounter
--- OUTSIDE RECORDS SUMMARY | 2025-04-17 01:51 | XMS_ITS | Clinical Summary ---
Author Organization Healthcare Address [address] [place] [address] Care Team Providers Care Flight Operation Coordinator Name Role Phone Unavailable Primary Care Provider Unavailabl e Encounters Date Type Department Care Team Description 04/03/2025 Orders Only External Location [address] [place] [id number] Lopez, Meenakshi N, DO 04/03/2025 Orders Only External Location [address] [place] [address] Lopez, Meenakshi N, DO 04/03/2025 Orders Only External Location [address] [place] [address] Lopez, Meenakshi N, DO 04/03/2025 Orders Only External Location [address] [place] [address] Lopez, Meenakshi N, DO 04/03/2025 Orders Only External Location [address] [place] [id number] Provider, External 04/03/2025 Orders Only External Location [address] [place] [address] Lopez, Meenakshi N, DO 04/03/2025 Orders Only External Location [address] [place] [address] Lopez, Meenakshi N, DO 04/03/2025 Orders Only External Location [address] [place] [address] Lopez, Meenakshi N, DO from Last 3 Months Social History Tobacco Use Types Packs/Day Years Used Date Smoking Tobacco: Never Assessed Comments Unknown Sex and Gender Information Value Date Recorded Sex Assigned at Not on file Legal Sex Female 7:46 PM EDT Gender Identity Not on file Sexual Orientation Not on file Plan of Treatment Not on file Procedures Procedure Name Priority Date/Time Associated Diagnosis Comments XR OUTSIDE IMAGES 04/03/2025 7:06 PM EDT XR OUTSIDE IMAGES 04/03/2025 7:06 PM EDT XR OUTSIDE IMAGES 04/03/2025 7:06 PM EDT XR OUTSIDE IMAGES 04/03/2025 7:[address] OUTSIDE IMAGES 04/03/2025 7:[address] OUTSIDE IMAGES 04/03/2025 7:[address] OUTSIDE IMAGES 04/03/2025 6:58 PM EDT XR OUTSIDE IMAGES 04/03/2025 6:42 PM EDT from Last 3 Months Results * XR OUTSIDE IMAGES (04/03/2025 7:06 PM EDT) Only the most recent of5 resultswithin the time period is included. Anatomical Region Laterality Modality Radiographic Kandace ging 04/03/2025 7:06 PM EDT us Meenakshi N John DO IMG XR PROCEDURES Final Result * CT OUTSIDE IMAGES (04/03/2025 7:04 PM EDT) Only the most recent of3 resultswithin the time period is included. Anatomical Region Laterality Modality Computed Tomogra phy 04/03/2025 7:04 PM EDT us Meenakshi N Lopez DO IMG CT PROCEDURES Final Result from Last 3 Months
--- OUTSIDE RECORDS SUMMARY | 2025-04-17 01:51 | XMS_ITS | Encounter Summary ---
Author Organization Healthcare Address [address] [place] [address] Care Team Providers Care Implementation Manager Name Role Phone Unavailable Primary Care Provider Unavailabl e Encounter Details Date Type Department Care Team (Late st Contact Info) Description 04/03/2025 Orders Only External Location [address] [place] [address] Meenakshi Lopez, [address] [place] [address] Social History Tobacco Use Types [...] Associated Diagnosis Comments XR OUTSIDE IMAGES 04/03/2025 6:42 PM EDT documented in this encounter Results * XR OUTSIDE IMAGES (04/03/2025 6:42 PM EDT) Anatomical Region Laterality Modality Radiographic Kandace ging 04/03/2025 6:42 PM EDT Meenakshi BENSON XR PROCEDURES Final Result documented in this encounter Visit Diagnoses Not on filedocumented in this encounter
--- OUTSIDE RECORDS SUMMARY | 2025-04-17 01:51 | XMS_ITS | Encounter Summary ---
Author Organization Healthcare Address [address] [place] [address] Care Team Providers Care Electrician Wiring Name Role Phone Unavailable Primary Care Provider Unavailabl e Encounter Details Date Type Department Care Team (Late st Contact Info) Description 04/03/2025 Orders Only External Location [address] [place] [address] Meenakshi Lopez, [address] [place] [address] Social History Tobacco Use Types [...] Associated Diagnosis Comments CT OUTSIDE IMAGES 04/03/2025 6:58 PM EDT documented in this encounter Results * CT OUTSIDE IMAGES (04/03/2025 6:58 PM EDT) Anatomical Region Laterality Modality Computed Tomogra phy 04/03/2025 6:58 PM EDT Meenakshi SOTOG CT PROCEDURES Final Result documented in this encounter Visit Diagnoses Not on filedocumented in this encounter
--- OUTSIDE RECORDS SUMMARY | 2025-04-17 01:51 | XMS_ITS | Encounter Summary ---
Author Organization Healthcare Address [address] [place] [address] Care Team Providers Care Cra Officer Name Role Phone Unavailable Primary Care Provider Unavailabl e Encounter Details Date Type Department Care Team (Late st Contact Info) Description 04/03/2025 Orders Only External Location [address] [place] [address] Meenakshi Lopez, [address] [place] [address] Social History Tobacco Use Types [...]
--- OUTSIDE RECORDS SUMMARY | 2025-04-17 01:51 | XMS_ITS | Encounter Summary ---
Author Organization Healthcare Address [address] [place] [address] Care Team Providers Care Locket Maker Name Role Phone Unavailable Primary Care Provider Unavailabl e Encounter Details Date Type Department Care Team (Late st Contact Info) Description 04/03/2025 Orders Only External Location [address] [place] [address] Meenakshi Lopez, [address] [place] [address] Social History Tobacco Use Types [...] Associated Diagnosis Comments CT OUTSIDE IMAGES 04/03/2025 7:04 PM EDT documented in this encounter Results * CT OUTSIDE IMAGES (04/03/2025 7:04 PM EDT) Anatomical Region Laterality Modality Computed Tomogra phy 04/03/2025 7:04 PM EDT Meenakshi SOTOG CT PROCEDURES Final Result documented in this encounter Visit Diagnoses Not on filedocumented in this encounter
--- OUTSIDE RECORDS SUMMARY | 2025-04-17 01:51 | XMS_ITS | Encounter Summary ---
Author Organization Healthcare Address [address] [place] [address] Care Team Providers Care Flute Polisher Name Role Phone Unavailable Primary Care Provider Unavailabl e Encounter Details Date Type Department Care Team (Late st Contact Info) Description 04/03/2025 Orders Only External Location [address] [place] [address] Provider, External Social History Tobacco Use Types Packs/Day Years [...] PM EDT) Anatomical Region Laterality Modality Radiographic Akndace ging 04/03/2025 7:06 PM EDT us External Provider IMG XR PROCEDURES Final Result documented in this encounter Visit Diagnoses Not on filedocumented in this encounter
--- OUTSIDE RECORDS SUMMARY | 2025-04-17 01:51 | XMS_ITS | Encounter Summary ---
Author Organization Healthcare Address [address] [place] [address] Care Team Providers Care Channel Layer Name Role Phone Unavailable Primary Care Provider Unavailabl e Encounter Details Date Type Department Care Team (Late st Contact Info) Description 04/03/2025 Orders Only External Location [address] [place] [address] Meenakshi Lopez, [address] [place] [address] Social History Tobacco Use Types [...]
[2025-04-17 02:21] VITALS: BP 125/82; PULSE 64; RESP 18; TEMP 36.8; O2SAT 97
--- NOTE | 2025-04-17 06:49 | ED_ITS ---
Discharge Plan Disposition Patient Disposition: Home, Self-Care Condition: Good Prescriptions Prescriptions: No Action amoxicillin-pot clavulanate 875-125 mg tablet 1 tab PO BID Qty: 20 0RF bacitracin 500 unit/gram ointment 1 applic topical BID Qty: 30 0RF oxycodone 5 mg tablet 5 mg PO Q8H PRN (Reason: pain) Qty: 12 0RF Referrals Follow up/Referrals: Pedro Lizarraga MD [Primary Care Provider, Internal Medicine] - See instructions Activity Restrictions/Add. Instructions Additional Instructions/Restrictions: Your evaluated in the ER and are believed to be appropriate for discharge at this time. Keep the wound clean and dry. Shower/bathe like normal. Continue using the bacitracin ointment on the wound. Monitor for any signs of infection as discussed including worsening redness, swelling, pain, or fevers. Follow-up with your primary care doctor in 2 to 3 days for recheck. Return to the ER with any new, worsening, or otherwise concerning symptoms including but not limited to signs of infection. Clinical Impressions Clinical Impression: Encounter for wound re-check Stand Alone Forms Stand Alone Forms: Work/School Release Instructions Patient Instructions: DI for Laceration Repair Print Language Print Language: Slovenian Discharge ED Provider: Colette Conway General Adult HPI General Chief complaint: Wound/Laceration Stated complaint: past head injury, redness, swelling stitches Time Seen by Provider: 04/17/25 01:47 Mode of Arrival: Ambulatory Source of Information: Patient Description of Symptoms (Recalled from ER Triage Doc. by RN): Pt presents to ED for concern over a wound from approx 2 weeks ago. Pt states she has no pain, no mental changes however she feels like the wound is a bit more red today. Pt states she has no pain at this time. Pt is A&O*4. History of Present Illness HPI narrative: 39-year-old female presents to the ER for evaluation of wound. Approximately 2 weeks ago patient sustained injuries from bricks falling on her and had a laceration overlying a skull fracture as well as laceration to the left knee. Patient went back to work today and noticed while at work that it seemed may be slightly more red and there was a bump on it. She has no pain, fevers, chills, she states it is not tender, there is no discharge. She states she has no dizziness, headache, numbness, tingling, weakness, or other neurologic symptoms. She states she otherwise feels normal and just wanted the wound evaluated. No other complaints or concerns. Related Data Previous Rx's ?Medication ?Instructions ?Recorded amoxicillin 875 mg-potassium 1 tab PO BID #20 tabs clavulanate 125 mg tablet bacitracin 500 unit/gram topical 1 applic topical BID #30 grams 04/03/25 ointment oxycodone 5 mg tablet 5 mg PO Q8H PRN pain #12 tab s 04/03/25 Allergies Allergy/AdvReac Type Severity Reaction Status Date / Time hydrocodone (HYDROCODONE) Allergy Intermediate ITCHING Verified 03/06/25 08:12 [facility] Disclaimer: The information contained in this section may have been updated after the patient was seen, as this information can be updated by other users. Medical History Asthma Surgical History Hx of cholecystectomy Hx of section Family History Father Diabetes Social History Smoking Status: Current every day smoker tobacco type: cigarettes packs per day: 1 alcohol intake: never current occupational status: other Travel in the last 8 weeks?: None Have you lived/traveled outside US in past 30 days?: No Contact w/someone who lives/traveled outside US past 30 days?: No Exposure to someone with infectious disease in past 14 days?: No Do you have a fever (greater than 100.4 F or 38 C)?: No Have you tested positive for COVID-19?: No Exposed to someone with COVID-19 in past 14 days?: No Do you have a sore throat?: No Do you have a cough?: No Do you have any weakness?: No Do you have any diarrhea?: No Are you experiencing any unusual bleeding?: No Do you have any muscle aches/pain?: No Do you have any abdominal pain?: No Are you experiencing loss of taste or smell?: No Other Medical History Have you received the Flu Vaccine for this season: No Have you received the Pneumonia Vaccine: No ROS Obtained: Yes Systems reviewed as appropriate & no additional complaints except as documented Per HPI Physical Exam General General appearance: alert and in no apparent distress Head Head exam: normocephalic and other (2 to 3 cm laceration on the frontal scalp extending from the hair onto the forehead. Well-healing, good granulation tissue, no induration or fluctuance, no significant erythema, no discharge or tenderness, small bump which I suspect is a deep suture) Eye Eye exam: Present PERRL and EOMI ENT ENT exam: Present mucous membranes moist Neck Neck exam: Present normal inspection and full ROM Chest Chest inspection: Present symmetric chest wall rise Respiratory Respiratory exam: Absent respiratory distress or stridor Cardiovascular Cardiovascular exam: Present regular rate and normal rhythm Extremities Exam Extremities exam: Present full ROM Neurological Exam Neurological exam: Present alert, oriented X3, CN II-XII intact and normal gait; Absent motor sensory deficit Psychiatric Psychiatric exam: Present normal affect and normal mood Skin Skin exam: Present warm and dry Medical Decision Making Medical Records Medical records reviewed: Yes I reviewed the patient's medical records. Screening: Per USPSTF and CDC recommendations, given the prevalence of disease in our region, it is our hospital?s policy to screen for HIV and viral Hepatitis for all patients aged 18 and over and those with ongoing risk factors. MR Comment: Review of ER documentation demonstrates patient had both superficial and deep sutures placed at the scalp wound. [place] Inquiry Pt receiving controlled substance: No Vital Signs: 04/17/25 01:51 04/17/25 02:21 Temperature 98.8 F 98.3 F Temperature Source Oral Oral Pulse Rate 64 Pulse Rate [Left] 73 Respiratory Rate 16 18 Blood Pressure 125/82 Blood Pressure [Right Arm] 137/94 H Blood Pressure Mean [Right Arm] 108 02 Sat by Pulse Oximetry 98 Oxygen Delivery Method Room Air Room Air Orders (Tests/Meds): ORDERS Category Date Time Status POCUS Point of Care (ER Only) Stat Exams 04/17/25 01:50 Completed Medical Decision Narrative: In summary, this 39-year-old female presents to the emergency department today for wound recheck. On initial evaluation patient is hemodynamically stable, afebrile, GCS 15, no neurologic deficits, patient has well-healing scalp laceration with no clinical evidence of infection, small bump at the anteriormo st aspect of the wound feels like a deep suture that has not yet dissolved. Differential diagnosis includes but is not limited to normal wound healing, superficial subcutaneous suture, cellulitis, abscess though I have low suspicion for these. Based on these concerns, I ordered [id number] ultrasound which I personally performed and interpreted. I do not appreciate evidence of cellulitis, there is a tiny area of fluid surrounding what appears to be a deep suture. I do not believe further labs or imaging are indicated. Patient has no clinical evidence of infection and ultrasound findings support no findings of infection. I encouraged her to continue using the previously provided bacitracin and continue managing the wound expectantly. Patient was given instructions on symptomatic management, follow up instructions, and return precautions for the emergency department. Patient indicated understanding and was discharged in stable condition. Procedures Miscellaneous Procedure Procedure Performed: Soft tissue ultrasound Indication: Soft tissue redness, bump at wound Identified structures: Superficial tissues of scalp/forehead Location: Scalp/forehead Findings: No cellulitis or subcutaneous air, tiny fluid collections surrounding subcutaneous suture without fluctuance, nothing amenable to drainage Impression: Superficial subcutaneous suture with tiny fluid collection, not amenable to drainage. Images were saved saved to the permanent archive. The study was technically a dequate. Soft tissue CPT codes Neck: 60322-36 Upper extremity: 76478-14 Axilla: 90642-54 Chest wall: 57848-85 Breast: 02391-56 (complete), 53811-41-[RT/LT] (limited) Upper back: 26147-69 Abdominal wall: 75557-34 Pelvic wall: 92519-25 Lower extremity: 94324-68 Other soft tissue: 04678-67 This study was performed by me, and I personally interpreted all images/videos. Based on my clinical judgment, these images were adequate and did not necessitate further imaging. Critical Care Critical Care Time Critical Care Time: No
== END 2025-04-17 02:24 | disposition home or self-care (01) ==
PROVIDERS: Emergency Provider Emergency Medicine; PCP Internal Medicine Adolescent Medicine
DX: S81.012A Laceration without foreign body, left knee, initial encounter (principal); Z51.89 Encounter for other specified aftercare; J45.909 Unspecified asthma, uncomplicated; F17.210 Nicotine dependence, cigarettes, uncomplicated
CPT/HCPCS: 99283

== ENCOUNTER 2025-09-22 10:01 | Emergency (ER) | payer SELFPAY ==
[2025-09-22 10:02] VITALS: BP 155/105; PULSE 66; RESP 18; TEMP 36.9; O2SAT 99; BMI 35.4
--- NOTE | 2025-09-22 10:09 | ED_ITS ---
<Statement entered by Chuy Guzmán MD - 09/22/25 15:50> I was consulted by the MARSHAL, and we discussed the complexity of the problems being addressed. I approve the treatment and management plan for this patient's care in the emergency department, thus performing a substantive portion of the medical decision making. Chuy Guzmán MD Discharge Plan Disposition Patient Disposition: Home, Self-Care Prescriptions Prescriptions: New cefdinir 300 mg capsule 300 mg PO BID 10 Days Qty: 20 0RF No Action amoxicillin-pot clavulanate 875-125 mg tablet 1 tab PO BID Qty: 20 0RF bacitracin 500 unit/gram ointment 1 applic topical BID Qty: 30 0RF oxycodone 5 mg tablet 5 mg PO Q8H PRN (Reason: pain) Qty: 12 0RF Referrals Follow up/Referrals: Pedro Lizarraga MD [Primary Care Provider, Internal Medicine] - See instructions Activity Restrictions/Add. Instructions Additional Instructions/Restrictions: Take Tylenol and ibuprofen for pain and fevers as necessary. Take antibiotics as directed. If any worsening pain or problems please return to the ED. Clinical Impressions Clinical Impression: Otitis media Instructions Patient Instructions: Middle Ear Infections (Alternative Therapy) Print Language Print Language: Greek Discharge ED Provider: Chuy Guzmán General Adult HPI General Chief complaint: Ear Stated complaint: Pain in L ear Time Seen by Provider: 09/22/25 10:05 Mode of Arrival: Ambulatory Source of Information: Patient Description of Symptoms (Recalled from ER Triage Doc. by RN): pt reports bilateral ear pain. left worse than right. denies drainage, reports ears feel full and sound is muffled History of Present Illness HPI narrative: 40 year old fm presents to the ED today with complaint of bilateral ear pain for a week. Patient states that her left is worse than her right. She denies any drainage. She says her ears do feel full. Related Data Previous Rx's ?Medication ?Instructions ?Recorded amoxicillin 875 mg-potassium 1 tab PO BID #20 tabs clavulanate 125 mg tablet bacitracin 500 unit/gram topical 1 applic topical BID #30 grams 04/03/25 ointment oxycodone 5 mg tablet 5 mg PO Q8H PRN pain #12 tab s 04/03/25 cefdinir 300 mg capsule 300 mg PO BID 10 days #20 ca ps 09/22/25 Allergies Allergy/AdvReac Type Severity Reaction Status Date / Time hydrocodone (HYDROCODONE) Allergy Intermediate ITCHING Verified 03/06/25 08:12 [facility] Disclaimer: The information contained in this section may have been updated after the patient was seen, as this information can be updated by other users. Medical History Asthma Surgical History Hx of cholecystectomy Hx of section Family History Father Diabetes Social History Smoking Status: Current every day smoker tobacco type: cigarettes packs per day: 1 alcohol intake: never current occupational status: other Travel in the last 8 weeks?: None Have you lived/traveled outside [place] in past 30 days?: No Contact w/someone who lives/traveled outside [place] past 30 days?: No Exposure to someone with infectious disease in past 14 days?: No Do you have a fever (greater than 100.4 F or 38 C)?: No Have you tested positive for COVID-19?: No Exposed to someone with COVID-19 in past 14 days?: No Do you have a sore throat?: No Do you have a cough?: No Do you have any weakness?: No Do you have any diarrhea?: No Are you experiencing any unusual bleeding?: No Do you have any muscle aches/pain?: No Do you have any abdominal pain?: No Are you experiencing loss of taste or smell?: No Other Medical History Have you received the Flu Vaccine for this season: No Have you received the Pneumonia Vaccine: No ROS Obtained: Yes Systems reviewed as appropriate & no additional complaints except as documented Constitutional Constitutional: Reports as per HPI Physical Exam General General appearance: alert and in no apparent distress Head Head exam: normocephalic Eye Eye exam: Present PERRL and EOMI ENT ENT exam: Present normal oropharynx, mucous membranes moist and other (Bilateral TMs red left worse than right) Neck Neck exam: Present full ROM and trachea midline Respiratory Respiratory exam: Present normal lung sounds bilaterally Cardiovascular Cardiovascular exam: Present regular rate, normal rhythm, normal heart sounds, +S1 and +S2 Extremities Exam Extremities exam: Present full ROM and normal capillary refill Neurological Exam Neurological exam: Present alert and oriented X3 Skin Skin exam: Present warm, dry and intact Medical Decision Making Medical Records Screening: Per USPSTF and CDC recommendations, given the prevalence of disease in our region, it is our hospital?s policy to screen for HIV and viral Hepatitis for all patients aged 18 and over and those with ongoing risk factors. [place] Inquiry Pt receiving controlled substance: No [place] was queried for this patient: No Vital Signs: 09/22/25 10:02 Temperature 98.4 F Temperature Source Oral Pulse Rate [Radial] 66 Respiratory Rate 18 Blood Pressure [Left Arm] 155/105 H Blood Pressure Mean [Left Arm] 121 Blood Pressure Source [Left Arm] Automatic Cuff Blood Pressure Position [Left Arm] Sitting 02 Sat by Pulse Oximetry 99 Oxygen Delivery Method Room Air Medical Decision Narrative: 40-year-old female presents to the ED for bilateral ear pain. Patient is stable and vital signs are hemodynamically stable and afebrile. Patient will receive antibiotics outpatient for treatment. She will follow-up with her PCP. No workup required here in the ED as this is an outpatient treatment. Patient had discussed this and she will return here if any worsening problems or concerns. Patient safe for discharge home. Critical Care Critical Care Time Critical Care Time: No
[2025-09-22 10:10] VITALS: BP 155/105; PULSE 66; RESP 18; TEMP 36.9; O2SAT 99
== END 2025-09-22 10:10 | disposition home or self-care (01) ==
PROVIDERS: Emergency Provider Student in an Organized Health Care Education/Training Program; PCP Internal Medicine Adolescent Medicine
DX: H66.93 Otitis media, unspecified, bilateral (principal); F17.210 Nicotine dependence, cigarettes, uncomplicated
CPT/HCPCS: 99283